=== PATIENT | male | born 1985 | race Caucasian/White ===

== ENCOUNTER 2018-08-11 21:03 | Inpatient (IN) | payer SELFPAY ==
[~2018-08-11] VITALS: Ht 160 cm; Wt 45.8 kg
--- NOTE | 2018-08-11 21:11 | NUR ---
JARETH LOBO admitted to room 401-1, with an admitting diagnosis of POSSIBLE TB INFECTION/PNU, on 08/11/18 from DIRECT ADMIT via WC, accompanied by FAMILY.JARETH LOBO introduced to surroundings, call light, bed controls, phone, TV, temperature control, lights, meal times, smoking policy, visitor policy, side rail policy, bathrooms and showers. Patient Rights given to patient in the handbook.JARETH LOBO verbalizes understanding that [facility] is not responsible for the loss or damage to any personal effects or valuables that are kept in the patients posession during their hospitalization.
[2018-08-11] MEDS ORDERED: cefTRIAXone FOR IV USE 1,000 MG in WATER (STERILE) FOR INJECTION 10 ML IV SCH (21:15)
[2018-08-11] MEDS ORDERED: RT-ALBUTEROL/IPRATROPIUM 3 ML (DUONEB) VIAL INH SCH (21:15)
--- NOTE | 2018-08-11 21:28 | NUR ---
UTILIZED LANGUAGE LINE PATIENT/FAMILY DOES NOT SPEAK HUNGARIAN.
[2018-08-11 21:46] VITALS: BP 97/63
[2018-08-11 22:14] VITALS: BP 97/63
[2018-08-11] MEDS ORDERED: RT-HYPERTONIC SALINE 3% 4 ML NEB ONE (22:41)
[2018-08-11] MEDS ORDERED: RT-HYPERTONIC SALINE 3% 4 ML NEB INH ONE (23:00)
[2018-08-11] MEDS: NS IV 1000 ML 1,000 ML IV SCH (23:30)
[2018-08-12] VITALS (12 sets, daily range): BP systolic 91–110; BP diastolic 63–83
[2018-08-12] MEDS ORDERED: RT-ALBUTEROL SULF 2.5 MG/3 ML PRE-MIX VIAL INH PRN (01:30)
[2018-08-12 02:02] LABS: BASOPHILS % (AUTO) 0 % (0-10); EOSINOPHILS % (AUTO) 0 % (0-10); HEMATOCRIT 31 % (40-54); HEMOGLOBIN 9.9 G/DL (13.3-17.7); LYMPHOCYTES # (AUTO) 1.6 X 10^3 (1.0-4.0); LYMPHOCYTES % (AUTO) 10 % (12-44); MEAN CORPUSCULAR HEMOGLOBIN 24 PG (25-34); MEAN CORPUSCULAR HGB CONC 32 G/DL (32-36); MEAN CORPUSCULAR VOLUME 76 FL (80-99); MEAN PLATELET VOLUME 8.4 FL (7.4-10.4); MONOCYTES # (AUTO) 1.3 X 10^3 (0.0-1.0); MONOCYTES % (AUTO) 8 % (0-12); NEUTROPHILS # (AUTO) 12.4 X 10^3 (1.8-7.8); NEUTROPHILS % (AUTO) 81 % (42-75); PLATELET COUNT 801 10^3/uL (130-400); RED CELL DISTRIBUTION WIDTH 14.9 % (10.0-14.5); WHITE BLOOD COUNT 15.3 10^3/uL (4.3-11.0)
[2018-08-12 02:23] LABS: ALANINE AMINOTRANSFERASE 39 U/L (0-55); ALBUMIN 2.9 GM/DL (3.2-4.5); ALKALINE PHOSPHATASE 173 U/L (40-136); BILIRUBIN,TOTAL 0.2 MG/DL (0.1-1.0); BUN/CREATININE RATIO 20; CALCIUM 9.1 MG/DL (8.5-10.1); CARBON DIOXIDE 21 MMOL/L (21-32); CHLORIDE 95 MMOL/L (98-107); CREATININE SERUM 0.75 MG/DL (0.60-1.30); GFR ESTIMATED > 60; GLUCOSE 295 MG/DL (70-105); POTASSIUM 3.9 MMOL/L (3.6-5.0); SODIUM 131 MMOL/L (135-145); TOTAL PROTEIN 6.9 GM/DL (6.4-8.2)
[2018-08-12 03:44] LABS: HYPOCHROMASIA SLIGHT; LYMPHOCYTES % (MANUAL) 9 %; MICROCYTOSIS SLIGHT; MONOCYTES % (MANUAL) 9 %; NEUTROPHILS % (MANUAL) 82 %
[2018-08-12 05:54] LABS: BASOPHILS % (AUTO) 0 % (0-10); EOSINOPHILS # (AUTO) 0.1 10^3/uL (0.0-0.3); EOSINOPHILS % (AUTO) 0 % (0-10); HEMATOCRIT 31 % (40-54); HEMOGLOBIN 9.7 G/DL (13.3-17.7); LYMPHOCYTES # (AUTO) 1.4 X 10^3 (1.0-4.0); LYMPHOCYTES % (AUTO) 12 % (12-44); MEAN CORPUSCULAR HEMOGLOBIN 24 PG (25-34); MEAN CORPUSCULAR HGB CONC 32 G/DL (32-36); MEAN CORPUSCULAR VOLUME 76 FL (80-99); MEAN PLATELET VOLUME 8.1 FL (7.4-10.4); MONOCYTES # (AUTO) 1.2 X 10^3 (0.0-1.0); MONOCYTES % (AUTO) 10 % (0-12); NEUTROPHILS # (AUTO) 9.3 X 10^3 (1.8-7.8); NEUTROPHILS % (AUTO) 78 % (42-75); PLATELET COUNT 696 10^3/uL (130-400); RED CELL DISTRIBUTION WIDTH 14.9 % (10.0-14.5); WHITE BLOOD COUNT 11.9 10^3/uL (4.3-11.0)
[2018-08-12 06:29] LABS: ALANINE AMINOTRANSFERASE 35 U/L (0-55); ALBUMIN 2.8 GM/DL (3.2-4.5); ALKALINE PHOSPHATASE 160 U/L (40-136); BILIRUBIN,TOTAL 0.3 MG/DL (0.1-1.0); BUN/CREATININE RATIO 19; CALCIUM 8.9 MG/DL (8.5-10.1); CARBON DIOXIDE 20 MMOL/L (21-32); CHLORIDE 99 MMOL/L (98-107); CREATININE SERUM 0.68 MG/DL (0.60-1.30); GFR ESTIMATED > 60; GLUCOSE 219 MG/DL (70-105); SODIUM 131 MMOL/L (135-145); TOTAL PROTEIN 6.5 GM/DL (6.4-8.2)
[2018-08-12] MEDS: NS IV 1000 ML 1,000 ML IV SCH ×3 (07:54→18:44)
--- NOTE | 2018-08-12 08:12 | Diagnostic Imaging Report ---
INDICATION: Shortness of breath and cough. FINDINGS: There are diffuse alveolar nodular infiltrates throughout both lungs. This is most dense in the left lung. The pattern is suspicious for diffuse pulmonary metastases. IMPRESSION: Grossly normal lungs could be metastatic process with superimposed pneumonia. Further evaluation with CT recommended. Dictated by: Dictated on workstation # [id number]
[2018-08-12] MEDS: RT-ALBUTEROL SULF 2.5 MG/3 ML PRE-MIX VIAL INH SCH ×2 (08:38→20:10)
--- NOTE | 2018-08-12 08:45 | Diagnostic Imaging Report ---
PROCEDURE: CT chest without contrast. TECHNIQUE: Multiple contiguous axial images were obtained through the chest without the use of intravenous contrast. Auto Exposure Controls were utilized during the CT exam to meet ALARA standards for radiation dose reduction. INDICATION: Shortness of breath There are no prior CT examinations available for comparison. The plain film examination of the chest performed on 08/11/2018 noted diffusely abnormal densities throughout both lungs. The possibility of metastatic disease was raised. On this study, there are numerous parenchymal lung masses some with cavitation. There are alveolar/interstitial infiltrates as well, particularly on the left. This appearance could well be secondary to neoplastic disease. An extensive inflammatory/infectious process such as a fungal infection could also present in this manner. There is no pleural fluid identified. The heart size is within normal limits. The aorta is not abnormally dilated. There do seem to be enlarged lymph nodes in the aorticopulmonary window and the left hilum. The evaluation of adenopathy, however, is limited due to the absence of intravenous contrast. The thyroid gland is unremarkable. The sections through the upper abdomen failed to show any sign of an acute abnormality. The bone windows are unremarkable for a fracture or for a destructive lesion. IMPRESSION: 1. There are extensive parenchymal nodules and alveolar/interstitial infiltrates bilaterally. Many of these nodules are cavitated. While these findings could be secondary to an inflammatory/infectious process, neoplastic disease should be the primary concern. 2. If previous exams are available, they would be helpful for comparison. Dictated by: Dictated on workstation # [id number]
[2018-08-12] MEDS ORDERED: AZITHROMYCIN INJECTION 500 MG in NS (IVPB) 250 ML IV SCH (09:00)
[2018-08-12] MEDS ORDERED: TUBERCULIN ID NR (09:21)
--- NOTE | 2018-08-12 09:47 | NUR ---
Dr Soriano ask for orders for a TB skin test. Order placed. Patient resting bed. TB skin test administered. Patient unable to very much speak Irish verbalized understand of education. I set patient up to eat breakfast after the TB skin test. No other needs at this time.
[2018-08-12] MEDS ORDERED: PIPERACILLIN/TAZO 4.5 GM/NS 100 ML IV NR ×2 (10:43)
[2018-08-12] MEDS ORDERED: VANCOMYCIN INJECTION 1,000 MG in NS (IVPB) 250 ML IV NR (10:46)
--- NOTE | 2018-08-12 11:35 | Pulmonary Consultation ---
History of Present Illness History of Present Illness Date of Consultation 08/12/18 11:30 Time Seen by Provider: 08:55 Date of Admission History of Present Illness 33yo with recent dx of DM from [facility] presented to [facility] clinic with persistent SOB, coughing green sputum, and excessive wt loss of over 100lbs. Denies any fever or chills. Denies any known contacts with TB. No hemoptysis . I am consulted for pulmonary management. Allergies and Home Medications Allergies Coded Allergies: No Known Drug Allergies (Unverified , 08/11/18) Home Medications No Active Prescriptions or Reported Meds Past Rzpyqqk-Lijemq-Phbjox Hx Patient Social History Alcohol Use: Denies Use Recreational Drug Use: No Recent Foreign Travel: Yes ([place]) Contact w/Someone Who Travel: Yes ([place]) Recent Infectious Disease Expo: Yes Recent Hopitalizations: No Seasonal Allergies Seasonal Allergies: No Past Medical History Surgeries: No Respiratory: No Cardiac: No Neurological: No Genitourinary: No Gastrointestinal: No Musculoskeletal: No Endocrine: Yes HEENT: No Cancer: No Psychosocial: No Integumentary: No Blood Disorders: No Review of Systems Time Seen by Provider: 09:02 Constitutional: Sweats, Weakness, Malaise; No: Fever, Chills, Other Eyes: No: Pain, Vision change, Conjunctivae inflammation, Eyelid inflammation, Other, Redness ENT: No: Ear pain, Ear discharge, Nose pain, Nose discharge, Nose congestion, Mouth pain, Mouth swelling, Throat pain, Throat swelling, Other Respiratory: Cough, Dry, Shortness of breath, SOB with excertion; No: Wheezing, Hemoptysis Sepsis Event Evaluation Height, Weight, BMI Height: 5'3.00" Weight: 96lbs. 6.0oz. 43.224615ma; 17.1 BMI Method: Exam Exam Vital Signs Date Time Temp Pulse Resp B/P (MAP) Pulse Ox O2 Delivery O2 Flow Rate FiO2 08/12/18 11:03 97.3 104 20 107/72 (84) 97 Room Air 08/12/18 08:39 97 Room Air 08/12/18 08:07 96 Room Air 08/12/18 04:00 98.9 96 20 101/65 (77) 96 Room Air 08/12/18 01:07 108 98 08/12/18 00:00 99.7 111 22 91/63 (72) 96 Room Air 08/11/18 23:45 95 Room Air 08/11/18 23:38 95 Room Air 08/11/18 22:45 Room Air 08/11/18 22:14 108 22 97/63 98 Room Air 08/11/18 21:46 108 22 97/63 (74) 98 Room Air I & O 08/12/18 07:00 Intake Total 250 ml Balance 250 ml Height & Weight Height: 5'3.00" Weight: 96lbs. 6.0oz. 43.401097as; 17.1 BMI Method: General Appearance: No Apparent Distress, WD/WN, Anxious HEENT: PERRL/EOMI, Normal ENT Inspection, Pharynx Normal Neck: Full Range of Motion, Normal Inspection, Non Tender, Supple Respiratory: Chest Non Tender, No Accessory Muscle Use, No Respiratory Distress, Decreased Breath Sounds Cardiovascular: Regular Rate, Rhythm, No Edema, No Gallop, No JVD Capillary Refill: Less Than 3 Seconds Gastrointestinal: normal bowel sounds, non tender, soft, no organomegaly, no pulsatile mass Extremity: Normal Capillary Refill, Normal Inspection Neurologic/Psychiatric: Alert, Oriented x3 Skin: Normal Color, Warm/Dry Lymphatic: No Adenopathy Results Lab Laboratory Tests 08/12/18 01:45 08/12/18 05:45 Assessment/Plan Assessment/Plan Severe bilateral cavitary pneumonia r/o TB -Continue beulah parnell -agarwal cultures -Check HIV -Check serum fungal panel -TB quantaferon -Will do bronchoscopy in AM severe sepsis -Start severe sepsis protocol -30ml/kg of IVF -Transfer to ICU for close monitoring DM -Monitor YUSUF BECERRA DO Aug 12, 2018 11:35
[2018-08-12] MEDS ORDERED: NS IV ONE (11:45)
[2018-08-12 12:18] LABS: ABG BASE EXCESS -1.2 MMOL/L (-2.5-2.5); ABG OXYGEN SATURATION 95 % (94-100); ABG PCO2 36 MMHG (35-45); ABG PH 7.41 (7.37-7.43); ABG PO2 69 MMHG (79-93)
[2018-08-12 12:20] LABS: ALLENS TEST YES-POS; INSPIRED O2 RA; PATIENT TEMP 97.3; VENTILATOR NO
[2018-08-12 12:20] LABS: ABSOLUTE RETIC # 31 10e9/L (24-90); BASOPHILS % (AUTO) 0 % (0-10); EOSINOPHILS % (AUTO) 0 % (0-10); HEMATOCRIT 31 % (40-54); HEMOGLOBIN 9.7 G/DL (13.3-17.7); LYMPHOCYTES # (AUTO) 1.5 X 10^3 (1.0-4.0); LYMPHOCYTES % (AUTO) 13 % (12-44); MEAN CORPUSCULAR HEMOGLOBIN 24 PG (25-34); MEAN CORPUSCULAR HGB CONC 31 G/DL (32-36); MEAN CORPUSCULAR VOLUME 76 FL (80-99); MEAN PLATELET VOLUME 8.8 FL (7.4-10.4); MONOCYTES # (AUTO) 1.2 X 10^3 (0.0-1.0); MONOCYTES % (AUTO) 10 % (0-12); NEUTROPHILS # (AUTO) 8.9 X 10^3 (1.8-7.8); NEUTROPHILS % (AUTO) 77 % (42-75); PLATELET COUNT 723 10^3/uL (130-400); RED CELL DISTRIBUTION WIDTH 14.9 % (10.0-14.5); RETICULOCYTE % 0.76 % (0.50-2.40); WHITE BLOOD COUNT 11.6 10^3/uL (4.3-11.0)
[2018-08-12 12:48] LABS: BAND NEUTROPHILS 2 %; BASOPHILS % (MANUAL) 0 %; EOSINOPHILS % (MANUAL) 0 %; LYMPHOCYTES % (MANUAL) 13 %; MONOCYTES % (MANUAL) 9 %; NEUTROPHILS % (MANUAL) 76 %
[2018-08-12 12:49] LABS: ANISOCYTOSIS SLIGHT; HYPOCHROMASIA SLIGHT; MICROCYTOSIS SLIGHT
--- NOTE | 2018-08-12 13:37 | NUR ---
USED THE [employer]REL ENDSHAKE ADJUSTER LINE TO ASK THE PATIENT IF HE WAS TAKING ANY MEDICATIONS PRIOR TO ADMISSION. HE STATES HE WAS NOT. WHEN ASKED WHAT PHARMACY HE WOULD LIKE TO USE HE REPLIED THE ONE CLOSEST TO ME. 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
--- NOTE | 2018-08-12 15:27 | NUR ---
Report to SVITLANA Cruz at this time. this RN escorted Patient to ICU1 per wheelchair with patient's belongings. SVITLANA Cruz to assume care of patient at this time.
[2018-08-12 17:17] LABS: AMPHETAMINE SCREEN, URINE NEGATIVE (NEGATIVE); BARBITURATE SCREEN URINE NEGATIVE (NEGATIVE); BENZODIAZEPINES SCREEN URINE NEGATIVE (NEGATIVE); CANNABINOID SCREEN, URINE NEGATIVE (NEGATIVE); COCAINE SCREEN URINE NEGATIVE (NEGATIVE); METHADONE STAT NEGATIVE (NEGATIVE); METHAMPHETAMINE SCREEN URINE S NEGATIVE (NEGATIVE); OPIATE SCREEN URINE NEGATIVE (NEGATIVE); OXYCODONE STAT NEGATIVE (NEGATIVE); PROPOXYPHENE STAT NEGATIVE (NEGATIVE); TRICYCLIC ANTIDEPRESSANTS SCRE NEGATIVE (NEGATIVE)
--- NOTE | 2018-08-12 17:23 | History & Physicial (CHS) ---
HPI History of Present Illness: 33 yo M from [facility] that presented to [facility] walk in clinic yesterday with weight loss and cough. States that he arrived here a couple weeks ago. States that prior to leaving [facility] he weighed 210 and now is under 100#. States that he was diagnosed with DM and was taking pills and he has been without any medications for over 6 months. Denies any fever or chills. Denies any known contacts with TB. Denies any pain. Denies any blood in sputum, urine or stool History got with director radiation oncology phone. Source: patient Exam Limitations: language barrier Date seen by provider: Aug 12, 2018 Time Seen by Provider: 11:30 Attending Physician Nakul Soriano MD [facility] Consult Date of Admission Aug 11, 2018 at 21:03 Home Medications Home Medications Reviewed patient Home Medication Reconciliation performed by pharmacy medication reconciliations splicing technician and/or nursing. Patients Allergies have been reviewed. Allergies Coded Allergies: No Known Drug Allergies (Unverified , 08/11/18) LPP-Sghdoz-Cijftp Hx Patient Social History Alcohol Use: Denies Use Recreational Drug Use: No Recent Foreign Travel: Yes ([place]) Contact w/other who traveled: Yes ([place]) Recent Hopitalizations: No Recent Infectious Disease Expo: Yes Physical Abuse Screen: No Sexual Abuse: No Past Medical History NIDDM Review of Systems ([facility]) Constitutional: No chills, No fever; weakness EENTM: no symptoms reported; No nose congestion, No throat pain, No throat swelling Respiratory: cough; No dyspnea on exertion, No hemoptysis, No short of breath Cardiovascular: no symptoms reported; No chest pain, No edema, No palpitations Gastrointestinal: no symptoms reported; No abdominal pain, No constipation, No diarrhea, No loss of appetite, No nausea, No vomiting Genitourinary: no symptoms reported; No dysuria, No frequency, No hematuria Musculoskeletal: no symptoms reported; No back pain, No joint pain, No muscle pain Skin: no symptoms reported; No lesions, No rash Psychiatric/Neurological: No Symptoms Reported Reviewed Test Results Reviewed Test Results Lab Laboratory Tests Test 08/12/18 01:45 08/12/18 05:45 08/12/18 12:07 08/12/18 14:38 Range/Units White Blood Count 15.3 H 11.6 H 4.3-11.0 10^3/uL Red Blood Count 4.13 L 4.09 L 4.35-5.85 10^6/uL Hemoglobin 9.9 L 9.7 L 13.3-17.7 G/DL Hematocrit 31 L 31 L 40-54 % Mean Corpuscular Volume 76 L 76 L 80-99 FL Mean Corpuscular Hemoglobin 24 L 24 L 25-34 PG Mean Corpuscular Hemoglobin Concent 32 31 L 32-36 G/DL Red Cell Distribution Width 14.9 H 14.9 H 10.0-14.5 % Platelet Count 801 H 723 H 130-400 10^3/uL Mean Platelet Volume 8.4 8.8 7.4-10.4 FL Neutrophils (%) (Auto) 81 H 77 H 42-75 % Lymphocytes (%) (Auto) 10 L 13 12-44 % Monocytes (%) (Auto) 8 10 0-12 % Eosinophils (%) (Auto) 0 0 0-10 % Basophils (%) (Auto) 0 0 0-10 % Neutrophils # (Auto) 12.4 H 8.9 H 1.8-7.8 X 10^3 Lymphocytes # (Auto) 1.6 1.5 1.0-4.0 X 10^3 Monocytes # (Auto) 1.3 H 1.2 H 0.0-1.0 X 10^3 Eosinophils # (Auto) 0.0 0.0 0.0-0.3 10^3/uL Basophils # (Auto) 0.0 0.0 0.0-0.1 10^3/uL Neutrophils % (Manual) 82 76 % Lymphocytes % (Manual) 9 13 % Monocytes % (Manual) 9 9 % Hypochromasia SLIGHT SLIGHT Microcytosis SLIGHT SLIGHT Sodium Level 131 L 131 L 135-145 MMOL/L Potassium Level 3.9 4.0 3.6-5.0 MMOL/L Chloride Level 95 L 99 98-107 MMOL/L Carbon Dioxide Level 21 20 L 21-32 MMOL/L Anion Gap 15 H 12 5-14 MMOL/L Blood Urea Nitrogen 15 13 7-18 MG/DL Creatinine 0.75 0.68 0.60-1.30 MG/DL Estimat Glomerular Filtration Rate > 60 > 60 BUN/Creatinine Ratio 20 19 Glucose Level 295 H 219 H 70-105 MG/DL Lactic Acid Level 3.00 *H 1.75 0.50-2.00 MMOL/L Calcium Level 9.1 8.9 8.5-10.1 MG/DL Corrected Calcium 10.0 9.9 8.5-10.1 MG/DL Total Bilirubin 0.2 0.3 0.1-1.0 MG/DL Aspartate Amino Transf (AST/SGOT) 23 22 5-34 U/L Alanine Aminotransferase (ALT/SGPT) 39 35 0-55 U/L Alkaline Phosphatase 173 H 160 H 40-136 U/L Total Protein 6.9 6.5 6.4-8.2 GM/DL Albumin 2.9 L 2.8 L 3.2-4.5 GM/DL Eosinophils % (Manual) 0 % Basophils % (Manual) 0 % Band Neutrophils 2 % Anisocytosis SLIGHT Absolute Reticulocyte Count 31 24-90 10e9/L Percent Reticulocyte Count 0.76 0.50-2.40 % Blood Gas Puncture Site RR Blood Gas Patient Temperature 97.3 Arterial Blood pH 7.41 7.37-7.43 Arterial Blood Partial Pressure CO2 36 35-45 MMHG Arterial Blood Partial Pressure O2 69 L 79-93 MMHG Arterial Blood HCO3 23 23-27 MMOL/L Arterial Blood Total CO2 24.0 21.0-31.0 MMOL/L Arterial Blood Oxygen Saturation 95 94-100 % Arterial Blood Base Excess -1.2 -2.5-2.5 MMOL/L David Test YES-POS Blood Gas Ventilator Setting NO Blood Gas Inspired Oxygen RA Test 08/12/18 17:00 Range/Units Urine Opiates Screen NEGATIVE NEGATIVE Urine Oxycodone Screen NEGATIVE NEGATIVE Urine Methadone Screen NEGATIVE NEGATIVE Urine Propoxyphene Screen NEGATIVE NEGATIVE Urine Barbiturates Screen NEGATIVE NEGATIVE Ur Tricyclic Antidepressants Screen NEGATIVE NEGATIVE Urine Phencyclidine Screen NEGATIVE NEGATIVE Urine Amphetamines Screen NEGATIVE NEGATIVE Urine Methamphetamines Screen NEGATIVE NEGATIVE Urine Benzodiazepines Screen NEGATIVE NEGATIVE Urine Cocaine Screen NEGATIVE NEGATIVE Urine Cannabinoids Screen NEGATIVE NEGATIVE Physical Exam-(CHC) Physical Exam Vital Signs VS - Last 72 Hours, by Label 08/11/18 08/11/18 08/11/18 08/11/18 21:46 22:14 22:45 23:38 Pulse 108 108 Resp 22 22 B/P (MAP) 97/63 (74) 97/63 Pulse Ox 98 98 95 O2 Delivery Room Air Room Air Room Air Room Air 08/11/18 08/12/18 08/12/1812/19 23:45 00:00 01:07 04:00 Temp 99.7 98.9 Pulse 111 108 96 Resp 22 20 B/P (MAP) 91/63 (72) 101/65 (77) Pulse Ox 95 96 98 96 O2 Delivery Room Air Room Air Room Air 08/12/18 08/12/18 08/12/18 08/12/18 08:07 08:39 11:03 15:00 Temp 97.3 97.8 Pulse 104 75 Resp 20 18 B/P (MAP) 107/72 (84) 102/68 (79) Pulse Ox 96 97 97 98 O2 Delivery Room Air Room Air Room Air Simple Mask 08/12/18 08/12/18 08/12/18 16:00 16:00 16:30 Temp 98.0 Pulse 76 65 Resp 18 19 B/P (MAP) 109/83 (92) 104/69 (81) Pulse Ox 97 96 O2 Delivery Room Air Room Air Room Air Capillary Refill : General Appearance: WD/WN, no apparent distress, thin HEENT: PERRL/EOMI, pharynx normal Neck: non-tender, full range of motion, supple Respiratory: chest non-tender, normal breath sounds, no respiratory distress, no accessory muscle use Cardiovascular: normal peripheral pulses, regular rate, rhythm, no murmur Gastrointestinal: normal bowel sounds, non tender, soft, no organomegaly Back: no CVA tenderness, no vertebral tenderness Extremities: normal range of motion, non-tender, no pedal edema, no calf tenderness, normal capillary refill Neurologic/Psychiatric: cant gang sawyer II-XII nml as tested, no motor/sensory deficits, alert, normal mood/affect, oriented x 3 Skin: normal color, warm/dry Lymphatic: no adenopathy Assessment/Plan Assessment/Plan Admission Status: Inpatient Order (span 2 midnights) Reason for Inpatient Admission: Needs ICU care and close monitoring (1) Cough Status: Acute Assessment & Plan: - CXR and CT concerning for TB, TB precautions, TB skin test done, Quanterferon Gold ordered, Dr Gomez consulted for bronch (2) Weight loss, unintentional Status: Acute (3) Microcytic anemia Status: Acute Assessment & Plan: - Peripheral smear pending, iron panel pending (4) Sepsis Status: Acute Assessment & Plan: - LA resolved, IVFs 30 ml/kg, Vanc/Zosyn/Azithromycin start ed, blood cultures pending Qualifiers: Qualified Codes: A41.9 - Sepsis, unspecified organism (5) Pneumonia Status: Acute Qualifiers: Qualified Codes: J18.9 - Pneumonia, unspecified organism (6) Non-insulin dependent type 2 diabetes mellitus Status: Chronic Assessment & Plan: - A1c pending Clinical Quality Measures DVT/VTE Risk/Contraindication: RFS Level Per Nursing on Admit: 0=No Risk/No VTE PPX NAKUL SORIANO MD Aug 12, 2018 17:23
[2018-08-12] MEDS: PIPERACILLIN/TAZOBACTAM (BULK) 4.5 GM in NS (IVPB) 100 ML IV SCH (18:38)
[2018-08-12 19:04] LABS: BILIRUBIN,URINE NEGATIVE (NEGATIVE); CLARITY,URINE CLEAR; COLOR,URINE YELLOW; GLUCOSE, URINE (UA) NEGATIVE (NEGATIVE); KETONES,URINE NEGATIVE (NEGATIVE); LEUKOCYTE ESTERASE ,URINE NEGATIVE (NEGATIVE); NITRITE,URINE NEGATIVE (NEGATIVE); PH,URINE 5 (5-9); PROTEIN,URINE NEGATIVE (NEGATIVE); UROBILINOGEN,URINE NORMAL (NORMAL)
[2018-08-12 19:13] LABS: BACTERIA,URINE TRACE /HPF
[2018-08-12] MEDS ORDERED: VANCOMYCIN 750 MG/NS 250 ML IVPB IV SCH ×2 (22:00)
[2018-08-13] VITALS (24 sets, daily range): BP systolic 74–181; BP diastolic 46–130
[2018-08-13] MEDS: PIPERACILLIN/TAZOBACTAM (BULK) 4.5 GM in NS (IVPB) 100 ML IV SCH ×3 (01:03→16:26)
[2018-08-13] MEDS: NS IV 1000 ML 1,000 ML IV SCH ×4 (01:04→23:52)
[2018-08-13 05:07] LABS: BASOPHILS % (AUTO) 0 % (0-10); EOSINOPHILS # (AUTO) 0.1 10^3/uL (0.0-0.3); EOSINOPHILS % (AUTO) 1 % (0-10); HEMATOCRIT 33 % (40-54); HEMOGLOBIN 10.3 G/DL (13.3-17.7); LYMPHOCYTES # (AUTO) 1.3 X 10^3 (1.0-4.0); LYMPHOCYTES % (AUTO) 12 % (12-44); MEAN CORPUSCULAR HEMOGLOBIN 24 PG (25-34); MEAN CORPUSCULAR HGB CONC 32 G/DL (32-36); MEAN CORPUSCULAR VOLUME 76 FL (80-99); MEAN PLATELET VOLUME 8.1 FL (7.4-10.4); MONOCYTES # (AUTO) 0.9 X 10^3 (0.0-1.0); MONOCYTES % (AUTO) 8 % (0-12); NEUTROPHILS # (AUTO) 8.9 X 10^3 (1.8-7.8); NEUTROPHILS % (AUTO) 80 % (42-75); PLATELET COUNT 737 10^3/uL (130-400); RED CELL DISTRIBUTION WIDTH 14.7 % (10.0-14.5); WHITE BLOOD COUNT 11.1 10^3/uL (4.3-11.0)
[2018-08-13 05:21] LABS: ALANINE AMINOTRANSFERASE 29 U/L (0-55); ALBUMIN 2.7 GM/DL (3.2-4.5); ALKALINE PHOSPHATASE 139 U/L (40-136); BILIRUBIN,TOTAL 0.3 MG/DL (0.1-1.0); BUN/CREATININE RATIO 9; CALCIUM 8.5 MG/DL (8.5-10.1); CARBON DIOXIDE 22 MMOL/L (21-32); CHLORIDE 101 MMOL/L (98-107); CREATININE SERUM 0.66 MG/DL (0.60-1.30); GFR ESTIMATED > 60; GLUCOSE 124 MG/DL (70-105); MAGNESIUM 1.4 MG/DL (1.8-2.4); PHOSPHORUS 3.4 MG/DL (2.3-4.7); POTASSIUM 4.3 MMOL/L (3.6-5.0); SODIUM 132 MMOL/L (135-145); TOTAL PROTEIN 6.2 GM/DL (6.4-8.2)
[2018-08-13] MEDS: POTASSIUM CL 10MEQ/50ML IVPB 50 ML IV SCH (05:23)
[2018-08-13] MEDS: MAGNESIUM 1 GM/100 ML IVPB 100 ML IV SCH ×3 (05:24→10:53)
[2018-08-13] MEDS: KCL 20 MEQ TAB (K-DUR) PO SCH (05:24)
[2018-08-13] MEDS ORDERED: MIDAZOLAM 5 MG/5 ML (VERSED) VIAL ONE (06:38)
[2018-08-13] MEDS ORDERED: fentaNYL INJECTION 100 MCG/2 ML AMP ONE (06:38)
--- NOTE | 2018-08-13 06:51 | Diagnostic Imaging Report ---
INDICATION: Pulmonary infiltrate. Portable chest at 3:31 AM Comparison from 08/11/2018. FINDINGS: There are coarse alveolar nodular infiltrates in both lungs with more confluence seen on the left than right. There is no obvious effusion. IMPRESSION: Severe diffuse pulmonary infiltrates, worse on the left than on the right. This has not appreciably changed from the previous study. Dictated by: Dictated on workstation # [id number]
--- NOTE | 2018-08-13 06:53 | Pulmonary Progress Note ---
Subjective Time Seen by a Provider: 11:28 Subjective/Events-last exam Family at bedside. CXR appears worse. Consent obtained for bronchoscopy. Sepsis Event Evaluation Height, Weight, BMI Height: 5'3.00" Weight: 96lbs. 6.0oz. 43.053035nb; 17.1 BMI Method: Focused Exam Lactate Level 08/12/18 01:45: Lactic Acid Level 3.00*H 08/12/18 05:45: Lactic Acid Level 1.75 Exam Exam Vital Signs Date Time Temp Pulse Resp B/P (MAP) Pulse Ox O2 Delivery O2 Flow Rate FiO2 08/13/18 06:00 91 27 95/58 (70) 92 Room Air 08/13/18 05:00 101 22 95/60 (72) 94 Room Air 08/13/18 04:00 101 29 93/63 (73) 93 Room Air 08/13/18 03:00 90 22 102/70 (81) 94 Room Air 08/13/18 02:00 85 23 96/66 (76) 94 Room Air 08/13/18 01:06 94 08/13/18 01:00 91 101/69 (80) 95 Room Air 08/13/18 00:00 94 Room Air 08/13/18 00:00 94 25 106/74 (85) 93 Room Air 08/12/18 23:00 96 34 101/66 (78) 93 Room Air 08/12/18 22:00 125 17 110/70 (83) 93 Room Air 08/12/18 21:40 93 Room Air 08/12/18 21:21 80 25 102/73 (83) Room Air 08/12/18 20:11 99.4 08/12/18 20:10 Room Air 08/12/18 20:00 95 Room Air 08/12/18 19:08 79 19 108/78 (88) Room Air 08/12/18 19:00 74 08/12/18 18:00 68 40 100/68 (79) Room Air 08/12/18 17:00 87 26 109/83 (92) Room Air 08/12/18 16:30 96 Room Air 08/12/18 16:00 65 19 104/69 (81) Room Air 08/12/18 16:00 98.0 76 18 109/83 (92) 97 Room Air 08/12/18 15:00 97.8 75 18 102/68 (79) 98 Simple Mask 08/12/18 11:03 97.3 104 20 107/72 (84) 97 Room Air 08/12/18 08:39 97 Room Air 08/12/18 08:07 96 Room Air I & O 08/13/18 07:00 Intake Total 1977.5 ml Balance 1977.5 ml Height & Weight Height: 5'3.00" Weight: 96lbs. 6.0oz. 43.086132jg; 17.1 BMI Method: General Appearance: Anxious, Mild Distress, Thin HEENT: PERRL/EOMI, Normal ENT Inspection, Pharynx Normal Neck: Full Range of Motion, Non Tender, Supple Respiratory: No Accessory Muscle Use, No Respiratory Distress, Decreased Breath Sounds Cardiovascular: Regular Rate, Rhythm, No Edema, No Gallop Capillary Refill: Less Than 3 Seconds Gastrointestinal: normal bowel sounds, non tender, soft, no organomegaly Extremity: Normal Capillary Refill, No Pedal Edema Neurologic/Psychiatric: Alert, Oriented x3 Skin: Normal Color, Warm/Dry Lymphatic: No Adenopathy Results Lab Laboratory Tests 08/12/18 01:45 08/12/18 05:45 08/13/18 04:50 Assessment/Plan Assessment/Plan Severe bilateral cavitary pneumonia r/o TB -Continue beulah parnell -agarwal cultures -Check HIV -Check serum fungal panel -TB quantaferon -Will do bronchoscopy today severe sepsis -Start severe sepsis protocol -CXR appears worse.-- change IVF to 75cc/hr -Transfer to ICU for close monitoring Hypomag -replace DM -Monitor YUSUF BECERRA DO Aug 13, 2018 06:53
[2018-08-13] MEDS ORDERED: MIDAZOLAM 5 MG/5 ML (VERSED) VIAL IVP ONE (07:05)
[2018-08-13] MEDS ORDERED: fentaNYL INJECTION 100 MCG/2 ML AMP IV ONE (07:45)
[2018-08-13] MEDS ORDERED: TROUGH ORDER-PHARMACY XX NR (09:00)
--- NOTE | 2018-08-13 10:02 | NUR ---
CM/SS, respond to consult. Continuing intermittent review of patient progress, moved from acute to ICU.
--- NOTE | 2018-08-13 10:34 | NUR ---
1015 DUE TO CHANGES IN STAFFING CARE OF PT AND REPORT GIVEN TO Randell SANTILLAN RN.
--- NOTE | 2018-08-13 10:47 | NUR ---
ptd vancomycin labs: scr 0.66 vancomycin level 5.1 plan: increase vancomycin to 1,500mg iv q 12 hours, next dose now, will recheck a trough level on 08/14 (prior to 3rd dose of new dosing schedule).
[2018-08-13] MEDS ORDERED: LIDOCAINE PF 1% 2 ML VIAL IJ ONE (10:51)
[2018-08-13] MEDS ORDERED: LIDOCAINE JELLY 2% 6 ML SYRINGE TOP ONE (10:51)
--- NOTE | 2018-08-13 11:32 | Pulmonary Procedures ---
Pulmonary Procedures Date of Procedure Date of Service: Aug 13, 2018 Bronch Bronchoscopy with bilateral bronchial washes and, RML BAL. Preop DX Cavitary PNA Postop DX: same with copious amounts of thick yellow sputum/mucous plugs. Complications: none After informed consent obtained and formal time out pt was sedated using Fentanyl and Versed. Bronchoscope was advanced through the nare and vocal cords. 1% lidocaine was used to anesthetize vocal cords, epiglottis, kd, and left/right main stem bronchus. An anatomical tour was undertaken down to the segmental bronchi bilaterally. No endobronchial lesions noted. Bilateral bronchial washes and, RML BAL were obtained. Pt tolerated procedure well. No complications noted. Stat CXR is pending. YUSUF BECERRA DO Aug 13, 2018 11:32
[2018-08-13] MEDS: inSUlin ASPART (NovoLOG) 1 UNIT/0.01 ML (CHARGE PER UNIT) SC SCH ×2 (12:23→18:45)
[2018-08-13] MEDS: VANCOMYCIN 1500 MG/NS 500 ML IVPB IV SCH ×4 (12:23→22:00)
--- NOTE | 2018-08-13 15:49 | NUR ---
1420 DUE TO CHANGES IN STAFFING CARE OF PT BACK TO THIS RN, REPORT RECEIVED FROM Randell SANTILLAN RN.
--- NOTE | 2018-08-13 19:22 | Progress Note (SOAP) ---
Subjective Subjective/Events-last exam Family at bedside. Patient doing well after bronch. Denies any shortness of breath or chest pain. Review of Systems Date Seen by Provider: Aug 13, 2018 Time Seen by Provider: 07:20 Pulmonary: Cough Cardiovascular: No: Chest Pain, Palpitations Gastrointestinal: No: Nausea, Vomiting, Abdominal Pain Focused Exam Lactate Level 08/12/18 01:45: Lactic Acid Level 3.00*H 08/12/18 05:45: Lactic Acid Level 1.75 Objective Exam Last Set of Vital Signs Vital Signs Date Time Temp Pulse Resp B/P (MAP) Pulse Ox O2 Delivery O2 Flow Rate FiO2 08/13/18 18:00 101 24 99/64 (76) 98 Room Air 08/13/18 16:27 97.2 08/13/18 16:27 2.00 Capillary Refill : Less Than 3 Seconds I&O Intake and Output 08/13/18 00:00 Intake Total 970 ml Balance 970 ml Intake Oral 850 ml IV Total 120 ml # Voids 7 # Bowel Movements 4 General: Alert, Oriented X3, Cooperative, No Acute Distress Lungs: Other (diffuse crackles, normal work of breathing) Heart: Regular Rate, No Murmurs Abdomen: Normal Bowel Sounds, Soft, No Tenderness, No Masses Extremities: No Edema, No Tenderness/Swelling Skin: No Rashes, No Breakdown Neuro: Normal Speech, Strength at 5/5 X4 Ext, Sensation Intact, Cranial Nerves 3-12 NL Results/Procedures Lab Laboratory Tests 08/13/18 04:50: White Blood Count 11.1H, Red Blood Count 4.31L, Hemoglobin 10.3L, Hematocrit 33L , Mean Corpuscular Volume 76L, Mean Corpuscular Hemoglobin 24L, Mean Corpuscular Hemoglobin Concent 32, Red Cell Distribution Width 14.7H, Platelet Count 737H, Mean Platelet Volume 8.1, Neutrophils (%) (Auto) 80H, Lymphocytes (%) (Auto) 12, Monocytes (%) (Auto) 8, Eosinophils (%) (Auto) 1, Basophils (%) (Auto) 0, Neutrophils # (Auto) 8.9H, Lymphocytes # (Auto) 1.3, Monocytes # (Auto) 0.9, Eosinophils # (Auto) 0.1, Basophils # (Auto) 0.0, Sodium Level 132L, Potassium Level 4.3, Chloride Level 101, Carbon Dioxide Level 22, Anion Gap 9, Blood Urea Nitrogen 6L, Creatinine 0.66, Estimat Glomerular Filtration Rate > 60, BUN/Creatinine Ratio 9, Glucose Level 124H, Calcium Level 8.5, Corrected Calcium 9.5, Phosphorus Level 3.4, Magnesium Level 1.4L, Total Bilirubin 0.3, Aspartate Amino Transf (AST/SGOT) 15, Alanine Aminotransferase (ALT/SGPT) 29, Alkaline Phosphatase 139H, Total Protein 6.2L, Albumin 2.7L 08/13/18 09:35: Vancomycin Level Trough 5.1L 08/13/18 12:16: Glucometer 145H 08/13/18 17:21: Glucometer 129H Microbiology 08/12/18 Blood Culture - Preliminary, Resulted No growth 08/13/18 Gram Stain - Final, Resulted 08/13/18 Bronchial Culture, Resulted Pending 08/13/18 Fungal Culture 1, Resulted Pending Assessment/Plan Assessment/Plan (1) Cough Status: Acute Assessment & Plan: - CXR and CT concerning for TB, TB precautions, TB skin test done, Quanterferon Gold ordered, Dr Gomez consulted for bronch 08/13: Bronch today with washing, fungal panel pending, HIV neg (2) Weight loss, unintentional Status: Acute (3) Microcytic anemia Status: Acute Assessment & Plan: - Peripheral smear pending, iron panel pending (4) Sepsis Status: Acute Assessment & Plan: - LA resolved, IVFs 30 ml/kg, Vanc/Zosyn/Azithromycin started, blood cultures pending Qualifiers: Qualified Codes: A41.9 - Sepsis, unspecified organism (5) Pneumonia Status: Acute Qualifiers: Qualified Codes: J18.9 - Pneumonia, unspecified organism (6) Non-insulin dependent type 2 diabetes mellitus Status: Chronic Assessment & Plan: - A1c pending (7) Hypomagnesemia Status: Acute Assessment & Plan: 08/13: Replace and repeat (8) Hyponatremia Status: Acute Assessment & Plan: 08/13: Likely 2/2 lung dz process, will continue to monitor Clinical Quality Measures DVT/VTE Risk/Contraindication: RFS Level Per Nursing on Admit: 0=No Risk/No VTE PPX NAKUL CARDOZO MD Aug 13, 2018 19:22
[2018-08-13] MEDS: RT-ALBUTEROL SULF 2.5 MG/3 ML PRE-MIX VIAL INH SCH (21:20)
[2018-08-14] VITALS (19 sets, daily range): BP systolic 84–107; BP diastolic 47–79
[2018-08-14] MEDS: inSUlin ASPART (NovoLOG) 1 UNIT/0.01 ML (CHARGE PER UNIT) SC SCH ×4 (00:17→18:32)
[2018-08-14] MEDS: PIPERACILLIN/TAZOBACTAM (BULK) 4.5 GM in NS (IVPB) 100 ML IV SCH ×3 (01:00→18:05)
[2018-08-14 03:31] LABS: BASOPHILS % (AUTO) 0 % (0-10); EOSINOPHILS # (AUTO) 0.1 10^3/uL (0.0-0.3); EOSINOPHILS % (AUTO) 1 % (0-10); HEMATOCRIT 31 % (40-54); HEMOGLOBIN 9.9 G/DL (13.3-17.7); LYMPHOCYTES # (AUTO) 1.7 X 10^3 (1.0-4.0); LYMPHOCYTES % (AUTO) 12 % (12-44); MEAN CORPUSCULAR HEMOGLOBIN 24 PG (25-34); MEAN CORPUSCULAR HGB CONC 32 G/DL (32-36); MEAN CORPUSCULAR VOLUME 76 FL (80-99); MEAN PLATELET VOLUME 8.4 FL (7.4-10.4); MONOCYTES # (AUTO) 1.1 X 10^3 (0.0-1.0); MONOCYTES % (AUTO) 8 % (0-12); NEUTROPHILS # (AUTO) 10.7 X 10^3 (1.8-7.8); NEUTROPHILS % (AUTO) 79 % (42-75); PLATELET COUNT 765 10^3/uL (130-400); RED CELL DISTRIBUTION WIDTH 14.9 % (10.0-14.5); WHITE BLOOD COUNT 13.6 10^3/uL (4.3-11.0)
[2018-08-14 03:44] LABS: ALANINE AMINOTRANSFERASE 23 U/L (0-55); ALBUMIN 2.7 GM/DL (3.2-4.5); ALKALINE PHOSPHATASE 127 U/L (40-136); BILIRUBIN,TOTAL 0.2 MG/DL (0.1-1.0); BUN/CREATININE RATIO 13; CALCIUM 8.8 MG/DL (8.5-10.1); CARBON DIOXIDE 22 MMOL/L (21-32); CHLORIDE 101 MMOL/L (98-107); CREATININE SERUM 0.69 MG/DL (0.60-1.30); GFR ESTIMATED > 60; GLUCOSE 186 MG/DL (70-105); MAGNESIUM 1.6 MG/DL (1.8-2.4); PHOSPHORUS 3.6 MG/DL (2.3-4.7); SODIUM 131 MMOL/L (135-145); TOTAL PROTEIN 6.4 GM/DL (6.4-8.2)
[2018-08-14] MEDS: POTASSIUM CL 10MEQ/50ML IVPB 50 ML IV SCH (04:11)
[2018-08-14] MEDS: MAGNESIUM 1 GM/100 ML IVPB 100 ML IV SCH ×3 (04:11→04:12)
[2018-08-14] MEDS: KCL 20 MEQ TAB (K-DUR) PO SCH (04:11)
--- NOTE | 2018-08-14 05:11 | Pulmonary Progress Note ---
Subjective Time Seen by a Provider: 05:11 Subjective/Events-last exam No complications noted. Sepsis Event Evaluation Height, Weight, BMI Height: 5'3.00" Weight: 96lbs. 6.0oz. 43.483127go; 17.1 BMI Method: Focused Exam Lactate Level 08/12/18 01:45: Lactic Acid Level 3.00*H 08/12/18 05:45: Lactic Acid Level 1.75 Exam Exam Vital Signs Date Time Temp Pulse Resp B/P (MAP) Pulse Ox O2 Delivery O2 Flow Rate FiO2 08/14/18 05:00 81 20 98/58 (71) 97 Room Air 08/14/18 04:00 90 24 107/64 (78) 93 Room Air 08/14/18 04:00 97 Nasal Cannula 2.00 08/14/18 03:00 84 22 88/56 (67) 97 Room Air 08/14/18 01:00 88 20 102/62 (75) 97 Room Air 08/14/18 01:00 88 08/14/18 00:00 97 Nasal Cannula 2.00 08/13/18 23:00 92 22 89/65 (73) 97 Room Air 08/13/18 22:00 105 25 104/72 (83) 96 Room Air 08/13/18 21:21 95 Nasal Cannula 2.00 08/13/18 21:00 98 28 95/67 (76) 96 Room Air 08/13/18 20:00 110 24 108/72 (84) 93 Room Air 08/13/18 20:00 99.4 08/13/18 20:00 97 Nasal Cannula 2.00 08/13/18 19:00 93 25 92/57 (69) 96 Room Air 08/13/18 19:00 96 08/13/18 18:00 101 24 99/64 (76) 98 Room Air 08/13/18 17:00 96 24 181/130 (147) 98 Room Air 08/13/18 16:27 97.2 08/13/18 16:27 97 Nasal Cannula 2.00 08/13/18 16:00 89 25 98/59 (72) 95 Room Air 08/13/18 15:00 92 23 103/70 (81) 96 Room Air 08/13/18 14:00 98 24 98/74 (82) 98 Room Air 08/13/18 13:00 95 08/13/18 13:00 92 19 102/75 (84) 98 Room Air 08/13/18 12:00 117 31 100/75 (83) 95 Room Air 08/13/18 12:00 97 Nasal Cannula 2.00 08/13/18 11:30 97.9 08/13/18 11:00 100 23 113/80 (91) 97 Room Air 08/13/18 10:00 85 20 93/59 (70) 95 Room Air 08/13/18 09:00 84 23 90/53 (65) 97 08/13/18 08:20 95 Room Air 08/13/18 08:00 98.8 08/13/18 08:00 104 25 74/46 (55) 98 Room Air 08/13/18 07:00 90 08/13/18 07:00 92 27 93/61 (72) 95 08/13/18 06:00 91 27 95/58 (70) 92 Room Air I & O 08/14/18 07:00 Intake Total 350 ml Output Total 750 ml Balance -400 ml Height & Weight Height: 5'3.00" Weight: 96lbs. 6.0oz. 43.581879ar; 17.1 BMI Method: General Appearance: Anxious, Mild Distress, Thin HEENT: PERRL/EOMI, Normal ENT Inspection, Pharynx Normal Neck: Full Range of Motion, Non Tender, Supple Respiratory: No Accessory Muscle Use, No Respiratory Distress, Decreased Breath Sounds Cardiovascular: Regular Rate, Rhythm, No Edema, No Gallop Capillary Refill: Less Than 3 Seconds Gastrointestinal: normal bowel sounds, non tender, soft, no organomegaly Extremity: Normal Capillary Refill, No Pedal Edema Neurologic/Psychiatric: Alert, Oriented x3 Skin: Normal Color, Warm/Dry Lymphatic: No Adenopathy Results Lab Laboratory Tests 08/12/18 05:45 08/13/18 04:50 08/14/18 02:53 Assessment/Plan Assessment/Plan Severe bilateral cavitary pneumonia r/o TB -Continue beulah parnell -agarwal cultures - pending -Check HIV -- neg -Check serum fungal panel - pending -TB quantaferon -s/p bronchoscopy severe sepsis -Continue Abx and await cultures Hypomag -replace DM -Monitor YUSUF BECERRA DO Aug 14, 2018 05:11
[2018-08-14] MEDS: RT-ALBUTEROL SULF 2.5 MG/3 ML PRE-MIX VIAL INH SCH ×2 (07:23→21:18)
--- NOTE | 2018-08-14 07:27 | Diagnostic Imaging Report ---
CLINICAL INDICATION: Patient with possible TB infection. EXAM: Portable chest x-ray upright view. COMPARISONS: Chest x-ray dated 08/13/2018. FINDINGS: Stable diffuse patchy airspace consolidations throughout the left lung. There is a subtle improved aeration of the right lung with persistent moderate airspace opacities throughout. The left costophrenic angle region is obscured and left pleural effusion cannot be excluded. There is stable pleural thickening of the left lung apex region. There is no pneumothorax. There is no right pleural effusion. Cardiac silhouette and pulmonary vasculature is obscured. The remainder of this exam shows no significant interval change compared to the prior study of comparison. IMPRESSION: There is subtle improved aeration of the right lung. Otherwise, there is no other significant change to the diffuse patchy areas of consolidation (left side more than the right). Dictated by: Dictated on workstation # [id number]
[2018-08-14] MEDS ORDERED: TROUGH ORDER-PHARMACY XX ONE (09:00)
[2018-08-14 10:02] LABS: ALANINE AMINOTRANSFERASE 24 U/L (0-55); ALBUMIN 2.9 GM/DL (3.2-4.5); ALKALINE PHOSPHATASE 127 U/L (40-136); BILIRUBIN,TOTAL 0.2 MG/DL (0.1-1.0); BUN/CREATININE RATIO 13; CALCIUM 8.7 MG/DL (8.5-10.1); CARBON DIOXIDE 23 MMOL/L (21-32); CHLORIDE 101 MMOL/L (98-107); GFR ESTIMATED > 60; GLUCOSE 148 MG/DL (70-105); POTASSIUM 4.5 MMOL/L (3.6-5.0); SODIUM 130 MMOL/L (135-145); TOTAL PROTEIN 6.7 GM/DL (6.4-8.2)
[2018-08-14] MEDS: VANCOMYCIN 1500 MG/NS 500 ML IVPB IV SCH ×4 (13:05→22:00)
[2018-08-14] MEDS: PYRIDOXINE (VITAMIN B-6) 50 MG TABLET PO SCH (15:00)
[2018-08-14] MEDS: ISONIAZID 300 MG PO SCH (15:00)
[2018-08-14] MEDS: ETHAMBUTOL 400 MG PO SCH (15:00)
[2018-08-14] MEDS: PYRAZINAMIDE 500 MG PO SCH (15:01)
[2018-08-14] MEDS: RIFAMPIN 150 MG (RIFADIN) CAP PO SCH (15:02)
[2018-08-14] MEDS: NS IV 1000 ML 1,000 ML IV SCH ×2 (15:44→20:00)
--- NOTE | 2018-08-14 16:14 | Progress Note (SOAP) ---
Subjective Subjective/Events-last exam Patient comfortable. On RA this AM. Tolerating PO diet Review of Systems Date Seen by Provider: Aug 14, 2018 Time Seen by Provider: 11:40 General: No Chills; Malaise Pulmonary: No Dyspnea; Cough Cardiovascular: No: Chest Pain, Palpitations, Edema Gastrointestinal: No: Nausea, Vomiting, Abdominal Pain Neurological: Weakness Focused Exam Lactate Level 08/12/18 01:45: Lactic Acid Level 3.00*H 08/12/18 05:45: Lactic Acid Level 1.75 Objective Exam Last Set of Vital Signs Vital Signs Date Time Temp Pulse Resp B/P (MAP) Pulse Ox O2 Delivery O2 Flow Rate FiO2 08/14/18 13:00 87 08/14/18 13:00 27 93/63 (73) 99 Room Air 08/14/18 12:00 2.00 08/14/18 11:30 97.8 Capillary Refill : Less Than 3 Seconds I&O Intake and Output 08/14/18 00:00 Intake Total 1807.5 ml Output Total 750 ml Balance 1057.5 ml Intake Oral 550 ml IV Total 1257.5 ml Output Urine Total 750 ml # Voids 4 # Bowel Movements 2 General: Alert, Oriented X3, Cooperative, No Acute Distress HEENT: Mucous Memb Moist/[place] Lungs: Other (Diminished breath sounds in left lung, diffuse crackles) Heart: Regular Rate, No Murmurs Abdomen: Normal Bowel Sounds, Soft, No Tenderness, No Masses Extremities: No Edema, No Tenderness/Swelling Psych/Mental Status: Mental Status NL, Mood NL Results/Procedures Lab Laboratory Tests 08/13/18 17:21: Glucometer 129H 08/14/18 02:53: White Blood Count 13.6H, Red Blood Count 4.10L, Hemoglobin 9.9L, Hematocrit 31L, Mean Corpuscular Volume 76L, Mean Corpuscular Hemoglobin 24L, Mean Corpuscular Hemoglobin Concent 32, Red Cell Distribution Width 14.9H, Platelet Count 765H, Mean Platelet Volume 8.4, Neutrophils (%) (Auto) 79H, Lymphocytes (%) (Auto) 12, Monocytes (%) (Auto) 8, Eosinophils (%) (Auto) 1, Basophils (%) (Auto) 0, Neutrophils # (Auto) 10.7H, Lymphocytes # (Auto) 1.7, Monocytes # (Auto) 1.1H, Eosinophils # (Auto) 0.1, Basophils # (Auto) 0.0, Sodium Level 131L, Potassium Level 4.0, Chloride Level 101, Carbon Dioxide Level 22, Anion Gap 8, Blood Urea Nitrogen 9, Creatinine 0.69, Estimat Glomerular Filtration Rate > 60, BUN/Creatinine Ratio 13, Glucose Level 186H, Calcium Level 8.8, Corrected Calcium 9.8, Phosphorus Level 3.6, Magnesium Level 1.6L, Total Bilirubin 0.2, Aspartate Amino Transf (AST/SGOT) 12, Alanine Aminotransferase (ALT/SGPT) 23, Alkaline Phosphatase 127, Total Protein 6.4, Albumin 2.7L 08/14/18 09:35: Sodium Level 130L, Potassium Level 4.5, Chloride Level 101, Carbon Dioxide Level 23, Anion Gap 6, Blood Urea Nitrogen 8, Creatinine 0.60, Estimat Glomerular Filtration Rate > 60, BUN/Creatinine Ratio 13, Glucose Level 148H, Calcium Level 8.7, Corrected Calcium 9.6, Total Bilirubin 0.2, Aspartate Amino Transf (AST/S GOT) 15, Alanine Aminotransferase (ALT/SGPT) 24, Alkaline Phosphatase 127, Total Protein 6.7, Albumin 2.9L, Vancomycin Level Trough 11.7 08/14/18 11:44: Glucometer 198H Microbiology 08/12/18 Blood Culture - Preliminary, Resulted No growth 08/13/18 Gram Stain - Final, Resulted 08/13/18 Bronchial Culture - Preliminary, Resulted Usual oral bessy 08/13/18 Fungal Culture 1 - Preliminary, Resulted Culture In Progress Assessment/Plan Assessment/Plan (1) Cough Status: Acute Assessment & Plan: - CXR and CT concerning for TB, TB precautions, TB skin test done, Quanterferon Gold ordered, Dr Gomez consulted for bronch 08/13: Bronch today with washing, fungal panel pending, HIV neg 08/14: + Quat Gold and Acid Fast stain, 4-drug therapy initiated (2) Weight loss, unintentional Status: Acute (3) Microcytic anemia Status: Acute Assessment & Plan: - Peripheral smear pending, iron panel pending 08/14: Iron Deficiency, will need replacement, will wait until treatment started (4) Sepsis Status: Acute Assessment & Plan: - LA resolved, IVFs 30 ml/kg, Vanc/Zosyn/Azithromycin started, blood cultures pending Qualifiers: Qualified Codes: A41.9 - Sepsis, unspecified organism (5) Pneumonia Status: Acute Qualifiers: Qualified Codes: J18.9 - Pneumonia, unspecified organism (6) Non-insulin dependent type 2 diabetes mellitus Status: Chronic Assessment & Plan: - A1c pending 08/14: A1c 13, SSI (7) Hypomagnesemia Status: Acute Assessment & Plan: 08/13: Replace and repeat (8) Hyponatremia Status: Acute Assessment & Plan: 08/13: Likely 2/2 lung dz process, will continue to monitor (9) Positive QuantiFERON-TB Gold test Status: Acute Clinical Quality Measures DVT/VTE Risk/Contraindication: RFS Level Per Nursing on Admit: 0=No Risk/No VTE PPX NAKUL CARDOZO MD Aug 14, 2018 16:13
[2018-08-14] MEDS ORDERED: ACETAMINOPHEN 325 MG TABLET PO NR (20:30)
[2018-08-15] VITALS (23 sets, daily range): BP systolic 85–124; BP diastolic 48–89
[2018-08-15] MEDS: inSUlin ASPART (NovoLOG) 1 UNIT/0.01 ML (CHARGE PER UNIT) SC SCH ×4 (00:02→18:00)
[2018-08-15] MEDS: PIPERACILLIN/TAZOBACTAM (BULK) 4.5 GM in NS (IVPB) 100 ML IV SCH ×3 (00:46→17:40)
[2018-08-15 03:13] LABS: BASOPHILS % (AUTO) 0 % (0-10); EOSINOPHILS # (AUTO) 0.1 10^3/uL (0.0-0.3); EOSINOPHILS % (AUTO) 1 % (0-10); HEMATOCRIT 31 % (40-54); HEMOGLOBIN 9.7 G/DL (13.3-17.7); LYMPHOCYTES # (AUTO) 1.1 X 10^3 (1.0-4.0); LYMPHOCYTES % (AUTO) 9 % (12-44); MEAN CORPUSCULAR HEMOGLOBIN 24 PG (25-34); MEAN CORPUSCULAR HGB CONC 31 G/DL (32-36); MEAN CORPUSCULAR VOLUME 76 FL (80-99); MEAN PLATELET VOLUME 8.1 FL (7.4-10.4); MONOCYTES # (AUTO) 0.8 X 10^3 (0.0-1.0); MONOCYTES % (AUTO) 7 % (0-12); NEUTROPHILS # (AUTO) 10.1 X 10^3 (1.8-7.8); NEUTROPHILS % (AUTO) 83 % (42-75); PLATELET COUNT 677 10^3/uL (130-400); RED CELL DISTRIBUTION WIDTH 14.7 % (10.0-14.5); WHITE BLOOD COUNT 12.2 10^3/uL (4.3-11.0)
[2018-08-15 03:35] LABS: ALANINE AMINOTRANSFERASE 25 U/L (0-55); ALBUMIN 2.7 GM/DL (3.2-4.5); ALKALINE PHOSPHATASE 126 U/L (40-136); BILIRUBIN,TOTAL 0.4 MG/DL (0.1-1.0); BUN/CREATININE RATIO 14; CALCIUM 8.6 MG/DL (8.5-10.1); CARBON DIOXIDE 21 MMOL/L (21-32); CHLORIDE 102 MMOL/L (98-107); CREATININE SERUM 0.74 MG/DL (0.60-1.30); GFR ESTIMATED > 60; GLUCOSE 151 MG/DL (70-105); MAGNESIUM 1.5 MG/DL (1.8-2.4); PHOSPHORUS 4.2 MG/DL (2.3-4.7); POTASSIUM 4.2 MMOL/L (3.6-5.0); SODIUM 132 MMOL/L (135-145); TOTAL PROTEIN 6.2 GM/DL (6.4-8.2)
[2018-08-15] MEDS: MAGNESIUM 1 GM/100 ML IVPB 100 ML IV SCH ×3 (03:45→04:45)
[2018-08-15] MEDS: POTASSIUM CL 10MEQ/50ML IVPB 50 ML IV SCH (03:46)
[2018-08-15] MEDS: KCL 20 MEQ TAB (K-DUR) PO SCH (03:46)
[2018-08-15] MEDS ORDERED: NS IV 1000 ML 1,000 ML IV SCH (05:30)
--- NOTE | 2018-08-15 06:18 | Pulmonary Progress Note ---
Subjective Time Seen by a Provider: 06:54 Subjective/Events-last exam Pt is spiking fevers still. Sepsis Event Evaluation Height, Weight, BMI Height: 5'3.00" Weight: 96lbs. 6.0oz. 43.228514or; 17.1 BMI Method: Exam Exam Vital Signs Date Time Temp Pulse Resp B/P (MAP) Pulse Ox O2 Delivery O2 Flow Rate FiO2 08/15/18 06:00 106 12 100/62 (75) 95 Room Air 08/15/18 05:00 84 20 93/55 (68) 94 Room Air 08/15/18 04:00 99.0 08/15/18 04:00 94 27 90/63 (72) 94 Room Air 08/15/18 04:00 97 Nasal Cannula 2.00 08/15/18 03:00 81 30 86/56 (66) 94 Room Air 08/15/18 02:00 81 24 93 Room Air 08/15/18 01:00 101 20 87/58 (68) 94 Room Air 08/15/18 01:00 91 08/15/18 00:00 97 Nasal Cannula 2.00 08/15/18 00:00 93 23 85/54 (64) 92 Room Air 08/15/18 00:00 99.7 08/14/18 23:00 99 22 87/51 (63) 92 Room Air 08/14/18 22:17 102.0 08/14/18 22:00 121 22 85/53 (64) 92 Room Air 08/14/18 21:18 91 Nasal Cannula 2.00 08/14/18 21:00 115 28 100/62 (75) 91 Room Air 08/14/18 20:00 112 25 91/47 (62) 92 Room Air 08/14/18 20:00 97 Nasal Cannula 2.00 08/14/18 20:00 102.7 08/14/18 19:00 114 08/14/18 19:00 114 29 93 Room Air 08/14/18 18:00 117 34 93/79 (84) 96 Room Air 08/14/18 17:00 96 26 101/69 (80) 97 Room Air 08/14/18 16:00 100 27 93 Room Air 08/14/18 16:00 97 Nasal Cannula 2.00 08/14/18 15:30 97.9 08/14/18 15:00 87 27 100/74 (83) 98 Room Air 08/14/18 14:00 91 29 99/66 (77) 95 Room Air 08/14/18 13:00 87 08/14/18 13:00 87 27 93/63 (73) 99 Room Air 08/14/18 12:00 97 Nasal Cannula 2.00 08/14/18 12:00 103 29 86/58 (67) 95 Room Air 08/14/18 11:30 97.8 08/14/18 11:00 81 20 90/55 (67) 97 Room Air 08/14/18 10:00 92 37 94/62 (73) 96 Room Air 08/14/18 09:00 84 18 84/51 (62) 97 Room Air 08/14/18 08:00 97 Nasal Cannula 2.00 08/14/18 08:00 87 20 88/55 (66) 97 Room Air 08/14/18 07:23 98 Nasal Cannula 2.00 08/14/18 07:00 95 19 97 Room Air 08/14/18 07:00 95 I & O 08/15/18 07:00 Intake Total 400 ml Balance 400 ml Height & Weight Height: 5'3.00" Weight: 96lbs. 6.0oz. 43.850201an; 17.1 BMI Method: General Appearance: Anxious, Mild Distress, Thin HEENT: PERRL/EOMI, Normal ENT Inspection, Pharynx Normal Neck: Full Range of Motion, Non Tender, Supple Respiratory: No Accessory Muscle Use, No Respiratory Distress, Decreased Breath Sounds Cardiovascular: Regular Rate, Rhythm, No Edema, No Gallop Capillary Refill: Less Than 3 Seconds Gastrointestinal: normal bowel sounds, non tender, soft, no organomegaly Extremity: Normal Capillary Refill, No Pedal Edema Neurologic/Psychiatric: Alert, Oriented x3 Skin: Normal Color, Warm/Dry Lymphatic: No Adenopathy Results Lab Laboratory Tests 08/14/18 02:53 08/14/18 09:35 08/15/18 03:04 Assessment/Plan Assessment/Plan Active TB with severe bilateral cavitary pneumonia -Continue vanco, zosyn and await cultures -Continue RIPE therapy -agarwal cultures - pending -Check HIV -- neg -Check serum fungal panel - pending -TB quantaferon -s/p bronchoscopy Hyponatremia -Monitor severe sepsis -Continue Abx and await cultures Hypomag -replace DM -Monitor YUSUF BECERRA DO Aug 15, 2018 06:18
[2018-08-15] MEDS: NS IV 1000 ML 1,000 ML IV SCH (08:32)
[2018-08-15] MEDS: VANCOMYCIN 1500 MG/NS 500 ML IVPB IV SCH ×4 (08:32→20:43)
--- NOTE | 2018-08-15 08:57 | Progress Note (SOAP) ---
Subjective Subjective/Events-last exam Patient with poor communication due to language barrier Review of Systems Date Seen by Provider: Aug 15, 2018 Time Seen by Provider: 07:00 Objective Exam Last Set of Vital Signs Vital Signs Date Time Temp Pulse Resp B/P (MAP) Pulse Ox O2 Delivery O2 Flow Rate FiO2 08/15/18 08:00 86 22 106/73 (84) 94 Room Air 08/15/18 04:00 99.0 08/15/18 04:00 2.00 Capillary Refill : Less Than 3 Seconds I&O Intake and Output 08/15/18 00:00 Intake Total 400 ml Balance 400 ml Intake Oral 400 ml # Voids 7 # Bowel Movements 2 General: No Acute Distress Results/Procedures Lab Laboratory Tests 08/14/18 09:35: Sodium Level 130L, Potassium Level 4.5, Chloride Level 101, Carbon Dioxide Level 23, Anion Gap 6, Blood Urea Nitrogen 8, Creatinine 0.60, Estimat Glomerular Filtration Rate > 60, BUN/Creatinine Ratio 13, Glucose Level 148H, Calcium Level 8.7, Corrected Calcium 9.6, Total Bilirubin 0.2, Aspartate Amino Transf (AST/SGOT) 15, Alanine Aminotransferase (ALT/SGPT) 24, Alkaline Phosphatase 127, Total Protein 6.7, Albumin 2.9L, Vancomycin Level Trough 11.7 08/14/18 11:44: Glucometer 198H 08/14/18 17:56: Glucometer 166H 08/14/18 23:55: Glucometer 200H 08/15/18 03:04: White Blood Count 12.2H, Red Blood Count 4.05L, Hemoglobin 9.7L, Hematocrit 31L, Mean Corpuscular Volume 76L, Mean Corpuscular Hemoglobin 24L, Mean Corpuscular Hemoglobin Concent 31L, Red Cell Distribution Width 14.7H, Platelet Count 677H, Mean Platelet Volume 8.1, Neutrophils (%) (Auto) 83H, Lymphocytes (%) (Auto) 9L, Monocytes (%) (Auto) 7, Eosinophils (%) (Auto) 1, Basophils (%) (Auto) 0, Neutro phils # (Auto) 10.1H, Lymphocytes # (Auto) 1.1, Monocytes # (Auto) 0.8, Eosinophils # (Auto) 0.1, Basophils # (Auto) 0.0, Sodium Level 132L, Potassium Level 4.2, Chloride Level 102, Carbon Dioxide Level 21, Anion Gap 9, Blood Urea Nitrogen 10, Creatinine 0.74, Estimat Glomerular Filtration Rate > 60, BUN/Creatinine Ratio 14, Glucose Level 151H, Calcium Level 8.6, Corrected Calcium 9.6, Phosphorus Level 4.2, Magnesium Level 1.5L, Total Bilirubin 0.4, Aspartate Amino Transf (AST/SGOT) 17, Alanine Aminotransferase (ALT/SGPT) 25, Alkaline Phosphatase 126, Total Protein 6.2L, Albumin 2.7L Microbiology 08/12/18 Blood Culture - Preliminary, Resulted No growth 08/13/18 Mycobacterial Culture - Preliminary, Resulted Assessment/Plan Assessment/Plan (1) Cough Status: Acute Assessment & Plan: - CXR and CT concerning for TB, TB precautions, TB skin test done, Quanterferon Gold ordered, Dr Gomez consulted for bronch 08/13: Bronch today with washing, fungal panel pending, HIV neg 08/14: + Quat Gold and Acid Fast stain, 4-drug therapy initiated 08/15: Patient with confirmed active TB -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 He is currently also on vancomycin and Zosyn until final cultures return. (2) Weight loss, unintentional Status: Acute Assessment & Plan: 08/15: Weight loss due to combination of TB illness and diabetes undiagnosed (3) Microcytic anemia Status: Acute Assessment & Plan: - Peripheral smear pending, iron panel pending 08/14: Iron Deficiency, will need replacement, will wait until treatment started (4) Sepsis Status: Acute Assessment & Plan: - LA resolved, IVFs 30 ml/kg, Vanc/Zosyn/Azithromycin started, blood cultures pending Qualifiers: Qualified Codes: A41.9 - Sepsis, unspecified organism (5) Pneumonia Status: Acute Qualifiers: Qualified Codes: J18.9 - Pneumonia, unspecified organism (6) Non-insulin dependent type 2 diabetes mellitus Status: Chronic Assessment & Plan: - A1c pending 08/14: A1c 13, SSI 08/15: Patient on sliding scale insulin currently. His glucose values have been in the upper 100 range. -Will continue to monitor and place him on medications prior to dismissal. (7) Hypomagnesemia Status: Acute Assessment & Plan: 08/13: Replace and repeat (8) Hyponatremia Status: Acute Assessment & Plan: 08/13: Likely 2/2 lung dz process, will continue to monitor (9) Positive QuantiFERON-TB Gold test Status: Acute Clinical Quality Measures DVT/VTE Risk/Contraindication: RFS Level Per Nursing on Admit: 0=No Risk/No VTE PPX DARYL HUBBARD MD Aug 15, 2018 08:57
--- NOTE | 2018-08-15 09:48 | Diagnostic Imaging Report ---
Indication: TB infection. Extensive nodular bilateral infiltrates involve the left greater than right lung and showed no change from prior. No pneumothorax found. Heart size within normal limits. Impression: Unchanged extensive 5 lobed infiltrates greater left. Dictated by: Dictated on workstation # [id number]
[2018-08-15] MEDS: RIFAMPIN 150 MG (RIFADIN) CAP PO SCH (12:07)
[2018-08-15] MEDS: PYRAZINAMIDE 500 MG PO SCH (12:07)
[2018-08-15] MEDS: ISONIAZID 300 MG PO SCH (12:08)
[2018-08-15] MEDS: PYRIDOXINE (VITAMIN B-6) 50 MG TABLET PO SCH (12:08)
[2018-08-15] MEDS: ETHAMBUTOL 400 MG PO SCH (12:10)
[2018-08-15] MEDS: RT-ALBUTEROL SULF 2.5 MG/3 ML PRE-MIX VIAL INH SCH (18:58)
[2018-08-15] MEDS: ACETAMINOPHEN 325 MG TABLET PO PRN (20:43)
[2018-08-16] VITALS (20 sets, daily range): BP systolic 80–117; BP diastolic 49–99
[2018-08-16] MEDS: PIPERACILLIN/TAZOBACTAM (BULK) 4.5 GM in NS (IVPB) 100 ML IV SCH ×3 (00:51→16:43)
[2018-08-16] MEDS: inSUlin ASPART (NovoLOG) 1 UNIT/0.01 ML (CHARGE PER UNIT) SC SCH ×4 (01:01→16:43)
[2018-08-16 03:43] LABS: BASOPHILS % (AUTO) 0 % (0-10); EOSINOPHILS # (AUTO) 0.3 10^3/uL (0.0-0.3); EOSINOPHILS % (AUTO) 3 % (0-10); HEMATOCRIT 31 % (40-54); HEMOGLOBIN 9.6 G/DL (13.3-17.7); LYMPHOCYTES # (AUTO) 1.2 X 10^3 (1.0-4.0); LYMPHOCYTES % (AUTO) 14 % (12-44); MEAN CORPUSCULAR HEMOGLOBIN 24 PG (25-34); MEAN CORPUSCULAR HGB CONC 31 G/DL (32-36); MEAN CORPUSCULAR VOLUME 75 FL (80-99); MEAN PLATELET VOLUME 8.3 FL (7.4-10.4); MONOCYTES # (AUTO) 0.9 X 10^3 (0.0-1.0); MONOCYTES % (AUTO) 10 % (0-12); NEUTROPHILS # (AUTO) 6.4 X 10^3 (1.8-7.8); NEUTROPHILS % (AUTO) 73 % (42-75); PLATELET COUNT 720 10^3/uL (130-400); RED CELL DISTRIBUTION WIDTH 15.1 % (10.0-14.5); WHITE BLOOD COUNT 8.8 10^3/uL (4.3-11.0)
[2018-08-16 04:08] LABS: ALANINE AMINOTRANSFERASE 22 U/L (0-55); ALBUMIN 2.6 GM/DL (3.2-4.5); ALKALINE PHOSPHATASE 120 U/L (40-136); BILIRUBIN,TOTAL 0.3 MG/DL (0.1-1.0); BUN/CREATININE RATIO 11; CALCIUM 8.5 MG/DL (8.5-10.1); CARBON DIOXIDE 21 MMOL/L (21-32); CHLORIDE 102 MMOL/L (98-107); CREATININE SERUM 0.71 MG/DL (0.60-1.30); GFR ESTIMATED > 60; GLUCOSE 161 MG/DL (70-105); MAGNESIUM 1.5 MG/DL (1.8-2.4); PHOSPHORUS 3.8 MG/DL (2.3-4.7); SODIUM 133 MMOL/L (135-145); TOTAL PROTEIN 6.4 GM/DL (6.4-8.2)
[2018-08-16] MEDS: KCL 20 MEQ TAB (K-DUR) PO SCH (04:13)
[2018-08-16] MEDS: POTASSIUM CL 10MEQ/50ML IVPB 50 ML IV SCH (04:13)
[2018-08-16] MEDS: NS IV 1000 ML 1,000 ML IV SCH ×4 (04:14→16:49)
[2018-08-16] MEDS: MAGNESIUM 1 GM/100 ML IVPB 100 ML IV SCH ×6 (04:19→11:22)
--- NOTE | 2018-08-16 06:48 | Pulmonary Progress Note ---
Subjective Time Seen by a Provider: 06:47 Subjective/Events-last exam Pt is still spiking fevers. Sepsis Event Evaluation Height, Weight, BMI Height: 5'3.00" Weight: 96lbs. 6.0oz. 43.171853xd; 17.1 BMI Method: Exam Exam Vital Signs Date Time Temp Pulse Resp B/P (MAP) Pulse Ox O2 Delivery O2 Flow Rate FiO2 08/16/18 06:00 79 23 92/56 (68) 95 Room Air 08/16/18 05:00 77 24 97/55 (69) 95 Room Air 08/16/18 04:10 Room Air 08/16/18 04:00 97.4 08/16/18 04:00 75 18 95/55 (68) 94 Room Air 08/16/18 03:00 76 17 90/57 (68) 95 Room Air 08/16/18 02:00 105 21 93/59 (70) 94 Room Air 08/16/18 01:00 98.1 08/16/18 01:00 84 08/16/18 01:00 82 23 89/55 (66) 94 Room Air 08/16/18 00:00 Room Air 08/16/18 00:00 89 27 93/61 (72) 92 Room Air 08/15/18 23:00 93 27 96/63 (74) 93 Room Air 08/15/18 22:00 92 22 93/57 (69) 92 Room Air 08/15/18 21:40 98.1 08/15/18 21:00 102 28 102/66 (78) 94 Room Air 08/15/18 20:49 Room Air 08/15/18 20:43 101.3 08/15/18 20:30 101.3 08/15/18 20:00 112 30 108/67 (81) 93 Room Air 08/15/18 19:09 124 08/15/18 19:00 110 23 104/72 (83) 99 Room Air 08/15/18 18:58 93 Room Air 08/15/18 18:00 110 30 111/67 (82) 95 Room Air 08/15/18 17:00 94 25 100/69 (79) 93 Room Air 08/15/18 16:55 100.3 08/15/18 16:00 96 33 107/71 (83) 96 Room Air 08/15/18 16:00 97 Nasal Cannula 2.00 08/15/18 15:45 102 96 08/15/18 15:00 102 32 105/78 (87) 96 Room Air 08/15/18 14:00 85 21 87/51 (63) 94 Room Air 08/15/18 13:00 92 25 98/59 (72) 94 Room Air 08/15/18 12:40 95 08/15/18 12:00 105 13 124/89 (101) 94 Room Air 08/15/18 12:00 97 Nasal Cannula 2.00 08/15/18 11:59 99.7 08/15/18 11:00 92 26 94/58 (70) 94 Room Air 08/15/18 10:00 84 21 92/48 (63) 95 Room Air 08/15/18 08:00 86 22 106/73 (84) 94 Room Air 08/15/18 08:00 97 Nasal Cannula 2.00 08/15/18 07:00 82 08/15/18 07:00 88 99/59 (72) 94 Room Air I & O 08/16/18 07:00 Intake Total 1855 ml Balance 1855 ml Height & Weight Height: 5'3.00" Weight: 96lbs. 6.0oz. 43.486758ql; 17.1 BMI Method: General Appearance: Anxious, Mild Distress, Thin HEENT: PERRL/EOMI, Normal ENT Inspection, Pharynx Normal Neck: Full Range of Motion, Non Tender, Supple Respiratory: No Accessory Muscle Use, No Respiratory Distress, Decreased Breath Sounds Cardiovascular: Regular Rate, Rhythm, No Edema, No Gallop Capillary Refill: Less Than 3 Seconds Gastrointestinal: normal bowel sounds, non tender, soft, no organomegaly Extremity: Normal Capillary Refill, No Pedal Edema Neurologic/Psychiatric: Alert, Oriented x3 Skin: Normal Color, Warm/Dry Lymphatic: No Adenopathy Results Lab Laboratory Tests 08/14/18 09:35 08/15/18 03:04 08/16/18 03:08 Assessment/Plan Assessment/Plan Active TB with severe bilateral cavitary pneumonia -Continue vanco, zosyn and await cultures -Continue RIPE therapy -agarwal cultures - pending -Check HIV -- neg -Check serum fungal panel - pending -TB quantaferon -s/p bronchoscopy Hyponatremia -Monitor severe sepsis -Continue Abx and await cultures Hypomag -replace DM -Monitor YUSUF BECERRA DO Aug 16, 2018 06:48
[2018-08-16] MEDS: RT-ALBUTEROL SULF 2.5 MG/3 ML PRE-MIX VIAL INH SCH ×2 (07:16→20:24)
--- NOTE | 2018-08-16 07:52 | Progress Note (SOAP) ---
Subjective Subjective/Events-last exam Patient's condition is slowly improving. There is language barrier with regard to exact details. He didn't run a low-grade temperature but he is currently at 98.1. Review of Systems Date Seen by Provider: Aug 16, 2018 Time Seen by Provider: 07:55 Objective Exam Last Set of Vital Signs Vital Signs Date Time Temp Pulse Resp B/P (MAP) Pulse Ox O2 Delivery O2 Flow Rate FiO2 08/16/18 07:21 95 Room Air 08/16/18 07:00 72 08/16/18 06:00 23 92/56 (68) 08/16/18 04:00 97.4 08/15/18 16:00 2.00 Capillary Refill : Less Than 3 Seconds I&O Intake and Output 08/16/18 00:00 Intake Total 1420 ml Balance 1420 ml Intake Oral 1300 ml IV Total 120 ml # Voids 6 General: No Acute Distress Results/Procedures Lab Laboratory Tests 08/15/18 11:59: Glucometer 156H 08/15/18 16:53: Glucometer 147H 08/16/18 00:45: Glucometer 189H 08/16/18 03:08: White Blood Count 8.8, Red Blood Count 4.08L, Hemoglobin 9.6L, Hematocrit 31L, Mean Corpuscular Volume 75L, Mean Corpuscular Hemoglobin 24L, Mean Corpuscular Hemoglobin Concent 31L, Red Cell Distribution Width 15.1H, Platelet Count 720H, Mean Platelet Volume 8.3, Neutrophils (%) (Auto) 73, Lymphocytes (%) (Auto) 14, Monocytes (%) (Auto) 10, Eosinophils (%) (Auto) 3, Basophils (%) (Auto) 0, Neutrophils # (Auto) 6.4, Lymphocytes # (Auto) 1.2, Monocytes # (Auto) 0.9, Eosinophils # (Auto) 0.3, Basophils # (Auto) 0.0, Sodium Level 133L, Potassium Level 4.0, Chloride Level 102, Carbon Dioxide Level 21, Anion Gap 10, Blood Urea Nitrogen 8, Creatinine 0.71, Estimat Glomerular Filtration Rate > 60, BUN/Creatinine Ratio 11, Glucose Level 161H, Calcium Level 8.5, Corrected Calcium 9.6, Phosphorus Level 3.8, Magnesium Level 1.5L, Total Bilirubin 0.3, Aspartate Amino Transf (AST/SGOT) 15, Alanine Aminotransferase (ALT/SGPT) 22, Alkaline Phosphatase 120, Total Protein 6.4, Albumin 2.6L Microbiology 08/12/18 Blood Culture - Preliminary, Resulted No growth 08/13/18 Mycobacterial Culture - Preliminary, Resulted Assessment/Plan Assessment/Plan (1) Positive QuantiFERON-TB Gold test Status: Acute Assessment & Plan: 08/16: Patient is with confirmed active tuberculosis. He is now on rifampin 450 mg daily, isoniazid 300 mg daily, ethambutol 800 mg daily, Pyrazinamide 1000 mg daily and vitamin B6. 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 He is currently also on vancomycin and Zosyn until final cultures return. (3) Non-insulin dependent type 2 diabetes mellitus Status: Chronic Assessment & Plan: - A1c pending 08/14: A1c 13, SSI 08/15: Patient on sliding scale insulin currently. His glucose values have been in the upper 100 range. -Will continue to monitor and place him on medications prior to dismissal. 08/16: -Drug interactions with the tuberculosis meds were checked prior to initiating glyburide and metformin. Ultimately patient will need to be dismissed on a diabetic regiment so therefore glyburide 5 mg and metformin 500 twice daily was initiated today. He will stay on sliding scale insulin as well. (4) Weight loss, unintentional Status: Acute Assessment & Plan: 08/15: Weight loss due to combination of TB illness and diabetes undiagnosed (5) Microcytic anemia Status: Acute Assessment & Plan: - Peripheral smear pending, iron panel pending 08/14: Iron Deficiency, will need replacement, will wait until treatment started (6) Pneumonia Status: Acute Assessment & Plan: 08/16: Patient is currently covered on vancomycin as well as Zosyn for possible underlying pneumonia. Pulmonology following. Qualifiers: Qualified Codes: J18.9 - Pneumonia, unspecified organism (7) Sepsis Status: Acute Assessment & Plan: - LA resolved, IVFs 30 ml/kg, Vanc/Zosyn/Azithromycin started, blood cultures pending Qualifiers: Qualified Codes: A41.9 - Sepsis, unspecified organism (8) Hypomagnesemia Status: Acute Assessment & Plan: 08/13: Replace and repeat (9) Hyponatremia Status: Acute Assessment & Plan: 08/13: Likely 2/2 lung dz process, will continue to monitor Clinical Quality Measures DVT/VTE Risk/Contraindication: RFS Level Per Nursing on Admit: 0=No Risk/No VTE PPX DARYL HUBBARD MD Aug 16, 2018 07:52
[2018-08-16] MEDS ORDERED: glyBURIDE 5 MG (MICRONASE) TAB PO NR (08:23)
[2018-08-16] MEDS: VANCOMYCIN 1500 MG/NS 500 ML IVPB IV SCH ×4 (09:04→20:40)
--- NOTE | 2018-08-16 10:33 | Diagnostic Imaging Report ---
Indication: TB infection. Frontal chest obtained at 0348 hours a.m. and compared to the previous day. There is no change in extensive bilateral infiltrates compared to the prior study. There is no pneumothorax or pleural fluid. Left apical pleural thickening is unchanged. Impression: No change in extensive bilateral infiltrates compared to the previous day. There is no new abnormality. Dictated by: Dictated on workstation # [id number]
[2018-08-16] MEDS: ISONIAZID 300 MG PO SCH (11:22)
[2018-08-16] MEDS: RIFAMPIN 150 MG (RIFADIN) CAP PO SCH (11:22)
[2018-08-16] MEDS: PYRIDOXINE (VITAMIN B-6) 50 MG TABLET PO SCH (11:22)
[2018-08-16] MEDS: PYRAZINAMIDE 500 MG PO SCH (11:23)
[2018-08-16] MEDS: ETHAMBUTOL 400 MG PO SCH (11:23)
[2018-08-16] MEDS: metFORMIN 500 MG (GLUCOPHAGE) TAB PO SCH (16:42)
[2018-08-16] MEDS: ACETAMINOPHEN 325 MG TABLET PO PRN (16:49)
--- NOTE | 2018-08-16 16:58 | NUR ---
LLMN=692.8 TYLENOL 650 GIVEN PO FOR FEVER. INSTRUCTED PT AND THE NEED FOR SPUTUM SAMPLE.
[2018-08-17] VITALS (14 sets, daily range): BP systolic 80–107; BP diastolic 49–85
[2018-08-17] MEDS: inSUlin ASPART (NovoLOG) 1 UNIT/0.01 ML (CHARGE PER UNIT) SC SCH ×4 (00:08→17:59)
[2018-08-17] MEDS: PIPERACILLIN/TAZOBACTAM (BULK) 4.5 GM in NS (IVPB) 100 ML IV SCH ×3 (00:08→17:59)
[2018-08-17] MEDS: ACETAMINOPHEN 325 MG TABLET PO PRN (00:08)
[2018-08-17] MEDS ORDERED: KETOROLAC 30 MG/ML VIAL ONE (02:18)
[2018-08-17] MEDS ORDERED: KETOROLAC 30 MG/ML VIAL IVP ONE ×2 (02:30→02:45)
[2018-08-17] MEDS: NS IV 1000 ML 1,000 ML IV SCH ×3 (03:35→19:49)
[2018-08-17 03:59] LABS: BASOPHILS % (AUTO) 0 % (0-10); EOSINOPHILS # (AUTO) 0.3 10^3/uL (0.0-0.3); EOSINOPHILS % (AUTO) 3 % (0-10); HEMATOCRIT 30 % (40-54); HEMOGLOBIN 9.3 G/DL (13.3-17.7); LYMPHOCYTES % (AUTO) 9 % (12-44); MEAN CORPUSCULAR HEMOGLOBIN 24 PG (25-34); MEAN CORPUSCULAR HGB CONC 32 G/DL (32-36); MEAN CORPUSCULAR VOLUME 76 FL (80-99); MEAN PLATELET VOLUME 8.6 FL (7.4-10.4); MONOCYTES # (AUTO) 0.9 X 10^3 (0.0-1.0); MONOCYTES % (AUTO) 9 % (0-12); NEUTROPHILS # (AUTO) 8.5 X 10^3 (1.8-7.8); NEUTROPHILS % (AUTO) 79 % (42-75); PLATELET COUNT 662 10^3/uL (130-400); RED CELL DISTRIBUTION WIDTH 14.7 % (10.0-14.5); WHITE BLOOD COUNT 10.7 10^3/uL (4.3-11.0)
[2018-08-17 04:16] LABS: ALANINE AMINOTRANSFERASE 22 U/L (0-55); ALBUMIN 2.5 GM/DL (3.2-4.5); ALKALINE PHOSPHATASE 122 U/L (40-136); BILIRUBIN,TOTAL 0.2 MG/DL (0.1-1.0); BUN/CREATININE RATIO 13; CALCIUM 8.1 MG/DL (8.5-10.1); CARBON DIOXIDE 18 MMOL/L (21-32); CHLORIDE 105 MMOL/L (98-107); CREATININE SERUM 0.75 MG/DL (0.60-1.30); GFR ESTIMATED > 60; GLUCOSE 115 MG/DL (70-105); POTASSIUM 3.6 MMOL/L (3.6-5.0); SODIUM 133 MMOL/L (135-145); TOTAL PROTEIN 5.9 GM/DL (6.4-8.2)
[2018-08-17 04:26] LABS: MAGNESIUM 1.7 MG/DL (1.8-2.4); PHOSPHORUS 3.2 MG/DL (2.3-4.7)
[2018-08-17] MEDS: POTASSIUM CL 10MEQ/50ML IVPB 50 ML IV SCH ×5 (06:07→11:43)
[2018-08-17] MEDS: KCL 20 MEQ TAB (K-DUR) PO SCH (06:09)
[2018-08-17] MEDS: MAGNESIUM 1 GM/100 ML IVPB 100 ML IV SCH ×5 (06:10→10:27)
[2018-08-17] MEDS: metFORMIN 500 MG (GLUCOPHAGE) TAB PO SCH ×2 (06:28→17:59)
--- NOTE | 2018-08-17 06:56 | Pulmonary Progress Note ---
Subjective Time Seen by a Provider: 06:56 Subjective/Events-last exam Pt is now hypotensive Sepsis Event Evaluation Height, Weight, BMI Height: 5'3.00" Weight: 96lbs. 6.0oz. 43.164764px; 17.1 BMI Method: Exam Exam Vital Signs Date Time Temp Pulse Resp B/P (MAP) Pulse Ox O2 Delivery O2 Flow Rate FiO2 08/17/18 06:00 79 25 85/53 (64) 95 Room Air 08/17/18 04:21 97.0 08/17/18 04:00 Room Air 08/17/18 04:00 75 20 90/56 (67) 93 Room Air 08/17/18 03:00 92 23 94/57 (69) 93 Room Air 08/17/18 02:34 101.3 08/17/18 02:00 96 22 97/54 (68) 92 Room Air 08/17/18 01:33 101.3 08/17/18 01:33 101.3 08/17/18 01:26 100 22 94/56 (69) 90 Room Air 08/17/18 01:00 98 08/17/18 00:08 100.9 08/17/18 00:05 103 105/81 (89) 93 Room Air 08/17/18 00:00 Room Air 08/17/18 00:00 100.9 08/16/18 23:00 98 103/61 (75) 96 Room Air 08/16/18 21:00 115 104/71 (82) 95 Room Air 08/16/18 20:40 98.9 08/16/18 20:26 92 Room Air 08/16/18 20:00 Room Air 08/16/18 20:00 92 25 94/51 (65) 93 Room Air 08/16/18 19:00 103 28 95 Room Air 08/16/18 19:00 103 08/16/18 18:00 104 27 95/53 (67) 95 Room Air 08/16/18 17:00 118 32 117/69 (85) 94 Room Air 08/16/18 16:49 100.3 08/16/18 16:00 105 29 97/67 (77) 94 Room Air 08/16/18 15:29 Room Air 08/16/18 15:00 98 32 96/99 (98) 96 Room Air 08/16/18 14:00 110 26 80/49 (59) 96 Room Air 08/16/18 13:00 76 08/16/18 13:00 96 Room Air 08/16/18 13:00 70 08/16/18 12:00 Room Air 08/16/18 11:00 81 22 88/53 (65) 95 Room Air 08/16/18 10:00 102 29 102/65 (77) 94 Room Air 08/16/18 09:00 80 19 95/62 (73) 94 Room Air 08/16/18 08:00 Room Air 08/16/18 08:00 89 28 98/64 (75) 94 Room Air 08/16/18 07:21 95 Room Air 08/16/18 07:00 72 08/16/18 07:00 72 28 99/64 (76) 95 Room Air I & O0 08/17/18 07:00 Intake Total 4202 ml Output Total 200 ml Balance 4002 ml Height & Weight Height: 5'3.00" Weight: 96lbs. 6.0oz. 43.362946rg; 17.1 BMI Method: General Appearance: Anxious, Mild Distress, Thin HEENT: PERRL/EOMI, Normal ENT Inspection, Pharynx Normal Neck: Full Range of Motion, Non Tender, Supple Respiratory: No Accessory Muscle Use, No Respiratory Distress, Decreased Breath Sounds Cardiovascular: Regular Rate, Rhythm, No Edema, No Gallop Capillary Refill: Less Than 3 Seconds Gastrointestinal: normal bowel sounds, non tender, soft, no organomegaly Extremity: Normal Capillary Refill, No Pedal Edema Neurologic/Psychiatric: Alert, Oriented x3 Skin: Normal Color, Warm/Dry Lymphatic: No Adenopathy Results Lab Laboratory Tests 08/16/18 03:08 08/17/18 03:19 Assessment/Plan Assessment/Plan Active TB with severe bilateral cavitary pneumonia -Continue vanco, zosyn and await cultures -Continue RIPE therapy -agarwal cultures - pending -Check HIV -- neg -s/p bronchoscopy Hypotension -Check LA -May need to stop Metformin -Give a liter bolus of LR and run at 150 after that Hyponatremia -Monitor severe sepsis -Continue Abx and await cultures Hypomag -replace DM -Monitor YUSUF BECERRA DO Aug 17, 2018 06:56
[2018-08-17] MEDS ORDERED: LACTATED RINGERS 1,000 ML IV ONE (07:00)
[2018-08-17] MEDS: RT-ALBUTEROL SULF 2.5 MG/3 ML PRE-MIX VIAL INH SCH ×2 (07:11→21:19)
--- NOTE | 2018-08-17 09:26 | NUR ---
Nathaniel Valente- I met with pts and large number of family members on 08/14/2018 1415 and obtained translation through language line, I answered questions and offered support.
[2018-08-17] MEDS: LACTATED RINGERS 1,000 ML IV SCH ×3 (09:29→21:21)
[2018-08-17] MEDS: VANCOMYCIN 1500 MG/NS 500 ML IVPB IV SCH ×4 (09:41→21:21)
[2018-08-17] MEDS: ENOXAPARIN 30 MG/0.3 ML (LOVENOX) SYR SC SCH (11:43)
[2018-08-17] MEDS: ETHAMBUTOL 400 MG PO SCH (11:44)
[2018-08-17] MEDS: PYRIDOXINE (VITAMIN B-6) 50 MG TABLET PO SCH (11:44)
[2018-08-17] MEDS: ISONIAZID 300 MG PO SCH (11:44)
[2018-08-17] MEDS: PYRAZINAMIDE 500 MG PO SCH (11:44)
[2018-08-17] MEDS: RIFAMPIN 150 MG (RIFADIN) CAP PO SCH (11:45)
[2018-08-18] VITALS (10 sets, daily range): BP systolic 80–103; BP diastolic 47–67
[2018-08-18] MEDS: PIPERACILLIN/TAZOBACTAM (BULK) 4.5 GM in NS (IVPB) 100 ML IV SCH ×3 (00:41→16:31)
[2018-08-18] MEDS: NS IV 1000 ML 1,000 ML IV SCH ×3 (03:59→23:45)
[2018-08-18 04:10] LABS: BASOPHILS % (AUTO) 0 % (0-10); EOSINOPHILS # (AUTO) 0.3 10^3/uL (0.0-0.3); EOSINOPHILS % (AUTO) 3 % (0-10); HEMATOCRIT 31 % (40-54); HEMOGLOBIN 9.8 G/DL (13.3-17.7); LYMPHOCYTES # (AUTO) 1.5 X 10^3 (1.0-4.0); LYMPHOCYTES % (AUTO) 14 % (12-44); MEAN CORPUSCULAR HEMOGLOBIN 24 PG (25-34); MEAN CORPUSCULAR HGB CONC 32 G/DL (32-36); MEAN CORPUSCULAR VOLUME 76 FL (80-99); MONOCYTES % (AUTO) 9 % (0-12); NEUTROPHILS # (AUTO) 7.7 X 10^3 (1.8-7.8); NEUTROPHILS % (AUTO) 73 % (42-75); PLATELET COUNT 716 10^3/uL (130-400); RED CELL DISTRIBUTION WIDTH 15.2 % (10.0-14.5); WHITE BLOOD COUNT 10.5 10^3/uL (4.3-11.0)
[2018-08-18 04:22] LABS: ALANINE AMINOTRANSFERASE 19 U/L (0-55); ALBUMIN 2.7 GM/DL (3.2-4.5); ALKALINE PHOSPHATASE 131 U/L (40-136); BILIRUBIN,TOTAL 0.2 MG/DL (0.1-1.0); BUN/CREATININE RATIO 15; CALCIUM 8.9 MG/DL (8.5-10.1); CARBON DIOXIDE 23 MMOL/L (21-32); CHLORIDE 100 MMOL/L (98-107); CREATININE SERUM 0.74 MG/DL (0.60-1.30); GFR ESTIMATED > 60; GLUCOSE 95 MG/DL (70-105); MAGNESIUM 1.6 MG/DL (1.8-2.4); PHOSPHORUS 3.9 MG/DL (2.3-4.7); POTASSIUM 4.8 MMOL/L (3.6-5.0); SODIUM 133 MMOL/L (135-145); TOTAL PROTEIN 6.6 GM/DL (6.4-8.2)
--- NOTE | 2018-08-18 04:34 | Pulmonary Progress Note ---
Subjective Time Seen by a Provider: 04:35 Subjective/Events-last exam Pt appears to be doing better however still hypotensive. Sepsis Event Evaluation Height, Weight, BMI Height: 5'3.00" Weight: 96lbs. 6.0oz. 43.579817yv; 17.1 BMI Method: Focused Exam Lactate Level 08/17/18 07:45: Lactic Acid Level 1.42 Exam Exam Vital Signs Date Time Temp Pulse Resp B/P (MAP) Pulse Ox O2 Delivery O2 Flow Rate FiO2 08/18/18 04:16 98.4 92 20 91/61 (71) 94 Room Air 08/18/18 04:00 Room Air 08/18/18 01:00 88 08/18/18 00:00 Room Air 08/18/18 00:00 99.7 96 24 91/54 (66) 94 Room Air 08/17/18 21:19 93 Room Air 08/17/18 21:00 100/71 (81) Room Air 08/17/18 20:00 99.7 08/17/18 20:00 Room Air 08/17/18 20:00 108 24 92 Room Air 08/17/18 19:00 86 08/17/18 19:00 90 24 101/75 (84) 93 Room Air 08/17/18 16:00 Room Air 08/17/18 16:00 82 25 104/85 (91) 92 Room Air 08/17/18 16:00 97.5 08/17/18 13:00 74 08/17/18 12:00 Room Air 08/17/18 11:40 96.9 73 20 107/78 (88) 95 Room Air 08/17/18 10:00 68 18 99/64 (76) 95 Room Air 08/17/18 09:00 69 20 94/69 (77) 94 Room Air 08/17/18 08:00 97.0 83 16 95/59 (71) 95 Room Air 08/17/18 08:00 Room Air 08/17/18 07:11 92 Room Air 08/17/18 07:00 66 17 80/49 (59) 93 Room Air 08/17/18 07:00 68 08/17/18 06:00 79 25 85/53 (64) 95 Room Air I & O 08/18/18 07:00 Intake Total 4950 ml Balance 4950 ml Height & Weight Height: 5'3.00" Weight: 96lbs. 6.0oz. 43.209728he; 17.1 BMI Method: General Appearance: No Apparent Distress, Anxious, Mild Distress, Thin HEENT: PERRL/EOMI, Normal ENT Inspection, Pharynx Normal Neck: Full Range of Motion, Non Tender, Supple Respiratory: No Accessory Muscle Use, No Respiratory Distress, Decreased Breath Sounds Cardiovascular: Regular Rate, Rhythm, No Edema, No Gallop Capillary Refill: Less Than 3 Seconds Gastrointestinal: normal bowel sounds, non tender, soft, no organomegaly Extremity: Normal Capillary Refill, No Pedal Edema Neurologic/Psychiatric: Alert, Oriented x3 Skin: Normal Color, Warm/Dry Lymphatic: No Adenopathy Results Lab Laboratory Tests 08/17/18 03:19 08/18/18 03:55 Assessment/Plan Assessment/Plan Active TB with severe bilateral cavitary pneumonia -zosyn and await cultures -Continue RIPE therapy -agarwal cultures - pending -Check HIV -- neg -s/p bronchoscopy Hypotension -NS 100cc/hr. Hyponatremia -Monitor severe sepsis -Continue Abx and await cultures Hypomag -replace DM -Monitor YUSUF BECERRA DO Aug 18, 2018 04:34
[2018-08-18] MEDS: POTASSIUM CL 10MEQ/50ML IVPB 50 ML IV SCH (04:45)
[2018-08-18] MEDS: KCL 20 MEQ TAB (K-DUR) PO SCH (04:45)
[2018-08-18] MEDS: MAGNESIUM 1 GM/100 ML IVPB 100 ML IV SCH ×3 (04:45→06:06)
[2018-08-18] MEDS: inSUlin ASPART (NovoLOG) 1 UNIT/0.01 ML (CHARGE PER UNIT) SC SCH ×4 (04:46→22:23)
[2018-08-18] MEDS: metFORMIN 500 MG (GLUCOPHAGE) TAB PO SCH ×2 (06:07→16:31)
--- NOTE | 2018-08-18 08:26 | Diagnostic Imaging Report ---
INDICATION: Tuberculosis. Dyspnea. COMPARISON: 08/16/2018. FINDINGS: Multifocal heterogeneous consolidations have progressed. Multifocal cavitary lesions are present and largest in the left lung. No pleural effusion or pneumothorax. Stable cardiomediastinal silhouette. IMPRESSION: Worsening of multifocal pulmonary consolidations that may relate to active tuberculosis per provided history. Dictated by: Dictated on workstation # [id number]
[2018-08-18] MEDS: RT-ALBUTEROL SULF 2.5 MG/3 ML PRE-MIX VIAL INH SCH ×2 (10:26→19:02)
[2018-08-18] MEDS: ENOXAPARIN 30 MG/0.3 ML (LOVENOX) SYR SC SCH (11:47)
[2018-08-18] MEDS: RIFAMPIN 150 MG (RIFADIN) CAP PO SCH (11:47)
[2018-08-18] MEDS: ISONIAZID 300 MG PO SCH (11:47)
[2018-08-18] MEDS: PYRIDOXINE (VITAMIN B-6) 50 MG TABLET PO SCH (11:47)
[2018-08-18] MEDS: PYRAZINAMIDE 500 MG PO SCH (11:47)
[2018-08-18] MEDS: ETHAMBUTOL 400 MG PO SCH (11:48)
[2018-08-18] MEDS ORDERED: RT-LEVALBUTEROL (XOPENEX) 1.25 MG/3 ML NEB NON-FORMULARY ONE (17:58)
[2018-08-19] VITALS (10 sets, daily range): BP systolic 85–106; BP diastolic 52–93
[2018-08-19] MEDS: PIPERACILLIN/TAZOBACTAM (BULK) 4.5 GM in NS (IVPB) 100 ML IV SCH ×2 (01:42→12:44)
[2018-08-19 04:24] LABS: BASOPHILS % (AUTO) 0 % (0-10); EOSINOPHILS # (AUTO) 0.3 10^3/uL (0.0-0.3); EOSINOPHILS % (AUTO) 4 % (0-10); HEMATOCRIT 32 % (40-54); LYMPHOCYTES # (AUTO) 1.6 X 10^3 (1.0-4.0); LYMPHOCYTES % (AUTO) 18 % (12-44); MEAN CORPUSCULAR HEMOGLOBIN 24 PG (25-34); MEAN CORPUSCULAR HGB CONC 31 G/DL (32-36); MEAN CORPUSCULAR VOLUME 76 FL (80-99); MEAN PLATELET VOLUME 8.1 FL (7.4-10.4); MONOCYTES # (AUTO) 0.7 X 10^3 (0.0-1.0); MONOCYTES % (AUTO) 8 % (0-12); NEUTROPHILS # (AUTO) 6.3 X 10^3 (1.8-7.8); NEUTROPHILS % (AUTO) 70 % (42-75); PLATELET COUNT 693 10^3/uL (130-400); RED CELL DISTRIBUTION WIDTH 15.1 % (10.0-14.5)
[2018-08-19 04:35] LABS: ALANINE AMINOTRANSFERASE 22 U/L (0-55); ALBUMIN 2.8 GM/DL (3.2-4.5); ALKALINE PHOSPHATASE 142 U/L (40-136); BILIRUBIN,TOTAL 0.2 MG/DL (0.1-1.0); BUN/CREATININE RATIO 13; CALCIUM 8.9 MG/DL (8.5-10.1); CARBON DIOXIDE 22 MMOL/L (21-32); CHLORIDE 103 MMOL/L (98-107); CREATININE SERUM 0.78 MG/DL (0.60-1.30); GFR ESTIMATED > 60; GLUCOSE 187 MG/DL (70-105); MAGNESIUM 1.7 MG/DL (1.8-2.4); PHOSPHORUS 4.3 MG/DL (2.3-4.7); SODIUM 136 MMOL/L (135-145); TOTAL PROTEIN 6.7 GM/DL (6.4-8.2)
[2018-08-19] MEDS: KCL 20 MEQ TAB (K-DUR) PO SCH (05:30)
[2018-08-19] MEDS: POTASSIUM CL 10MEQ/50ML IVPB 50 ML IV SCH (05:30)
[2018-08-19] MEDS: MAGNESIUM 1 GM/100 ML IVPB 100 ML IV SCH ×3 (05:30→07:00)
[2018-08-19] MEDS: metFORMIN 500 MG (GLUCOPHAGE) TAB PO SCH ×2 (05:41→17:50)
[2018-08-19] MEDS: inSUlin ASPART (NovoLOG) 1 UNIT/0.01 ML (CHARGE PER UNIT) SC SCH ×4 (05:42→21:01)
[2018-08-19] MEDS: NS IV 1000 ML 1,000 ML IV SCH ×2 (05:45→17:49)
--- NOTE | 2018-08-19 08:00 | Diagnostic Imaging Report ---
Indication: Tuberculosis. Comparison with 08/18/2018. Findings: Dense alveolar infiltrates noted more severe on the left. There is significant volume loss in the left as well. Developing cavitary lesions noted bilaterally as reported previously. The heart is not enlarged. No pneumothorax. No pleural effusion. IMPRESSION: 1. Little overall change with diffuse alveolar infiltrates with cavitary nodular development again noted. Findings are again consistent with active TB. Little overall change has occurred since previous exam. Dictated by: Dictated on workstation # [id number]
[2018-08-19] MEDS: RT-ALBUTEROL SULF 2.5 MG/3 ML PRE-MIX VIAL INH SCH ×2 (08:41→23:26)
--- NOTE | 2018-08-19 08:47 | Pulmonary Progress Note ---
Subjective Time Seen by a Provider: 15:13 Subjective/Events-last exam No complications noted. Sepsis Event Evaluation Height, Weight, BMI Height: 5'3.00" Weight: 101lbs. 0.0oz. 45.396632xj; 17.1 BMI Method: Focused Exam Lactate Level 08/17/18 07:45: Lactic Acid Level 1.42 Exam Exam Vital Signs Date Time Temp Pulse Resp B/P (MAP) Pulse Ox O2 Delivery O2 Flow Rate FiO2 08/19/18 08:00 Room Air 08/19/18 04:00 86/52 (63) 94 Room Air 08/19/18 04:00 Room Air 08/19/18 01:00 91 08/19/18 00:00 92 18 Room Air 08/19/18 00:00 Room Air 08/19/18 00:00 98.0 92 18 99/63 (75) 94 Room Air 08/18/18 23:00 77 23 80/47 (58) 93 Room Air 08/18/18 22:00 78 25 96/63 (74) 97 Room Air 08/18/18 21:00 96 28 103/66 (78) 98 Room Air 08/18/18 20:00 94 25 89/60 (70) 92 Room Air 08/18/18 20:00 97.0 08/18/18 20:00 Room Air 08/18/18 19:02 90 08/18/18 19:02 95 Room Air 08/18/18 16:31 Room Air 08/18/18 16:00 97.2 08/18/18 16:00 82 24 82/67 (72) 93 Room Air 08/18/18 13:00 88 08/18/18 12:00 106 89/58 (68) 94 Room Air 08/18/18 11:58 97.6 Room Air 08/18/18 11:46 Room Air 08/18/18 10:26 93 95 08/18/18 10:26 95 Room Air I & O 08/19/18 07:00 Intake Total 2350 ml Balance 2350 ml Height & Weight Height: 5'3.00" Weight: 101lbs. 0.0oz. 45.003264xd; 17.1 BMI Method: General Appearance: No Apparent Distress, WD/WN, Anxious HEENT: PERRL/EOMI, Normal ENT Inspection, Pharynx Normal Neck: Full Range of Motion, Normal Inspection, Non Tender, Supple Respiratory: Chest Non Tender, No Accessory Muscle Use, No Respiratory Distress, Decreased Breath Sounds Cardiovascular: Regular Rate, Rhythm, No Edema, No Gallop, No JVD Capillary Refill: Less Than 3 Seconds Gastrointestinal: normal bowel sounds, non tender, soft, no organomegaly, no pulsatile mass Extremity: Normal Capillary Refill, Normal Inspection Neurologic/Psychiatric: Alert, Oriented x3 Skin: Normal Color, Warm/Dry Lymphatic: No Adenopathy Results Lab Laboratory Tests 08/18/18 03:55 08/19/18 04:05 Assessment/Plan Assessment/Plan Active TB with severe bilateral cavitary pneumonia -zosyn and await cultures -Continue RIPE therapy will be directed by health dept -agarwal cultures - pending -Check HIV -- neg -s/p bronchoscopy Hypotension -Continue IVF Hyponatremia -Monitor severe sepsis -Continue Abx and await cultures Hypomag -replace DM -Monitor Plan for discharge or Friday. Will follow up after TB is treated per health dept recs. Will do bronchoscopy later in treatment mgmt if needed. Will plan on seeing pt 6mo after discharge unless he develops worsening symptoms or if bronchoscopy is needed per health dept. Today is last day of Zosyn and cultures have been negative. No other Abx needed at this time. YUSUF BECERRA DO Aug 19, 2018 08:47
[2018-08-19] MEDS: ENOXAPARIN 30 MG/0.3 ML (LOVENOX) SYR SC SCH (11:00)
[2018-08-19] MEDS: PYRIDOXINE (VITAMIN B-6) 50 MG TABLET PO SCH (12:00)
[2018-08-19] MEDS: RIFAMPIN 150 MG (RIFADIN) CAP PO SCH (12:00)
--- NOTE | 2018-08-19 12:12 | NUR ---
Notified Avis Adriana [phone] at [facility] that patients planned discharge this week. She ask that we send her the prescriptions the patient will need for medications and the name of the physician doing follow up as they do not have a physician working for the [facility] at this time. Patient will need education on being isolated at home and not to leave home and to wear a mask anytime he is around other people until the Health department tells him otherwise.
[2018-08-19] MEDS: ETHAMBUTOL 400 MG PO SCH (12:24)
[2018-08-19] MEDS: ISONIAZID 300 MG PO SCH (12:24)
[2018-08-19] MEDS: PYRAZINAMIDE 500 MG PO SCH (12:24)
[2018-08-19] MEDS: ACETAMINOPHEN 325 MG TABLET PO PRN (23:04)
[2018-08-20] VITALS: BP 86/53
[2018-08-20 01:00] VITALS: BP 86/50
[2018-08-20 02:00] VITALS: BP_SYST 57; BP_SYST 84; BP_DIAS 43; BP_DIAS 56
[2018-08-20 03:00] VITALS: BP 90/64
[2018-08-20 03:22] LABS: BASOPHILS % (AUTO) 0 % (0-10); EOSINOPHILS # (AUTO) 0.3 10^3/uL (0.0-0.3); EOSINOPHILS % (AUTO) 2 % (0-10); HEMATOCRIT 34 % (40-54); HEMOGLOBIN 10.4 G/DL (13.3-17.7); LYMPHOCYTES # (AUTO) 1.7 X 10^3 (1.0-4.0); LYMPHOCYTES % (AUTO) 15 % (12-44); MEAN CORPUSCULAR HEMOGLOBIN 23 PG (25-34); MEAN CORPUSCULAR HGB CONC 31 G/DL (32-36); MEAN CORPUSCULAR VOLUME 76 FL (80-99); MEAN PLATELET VOLUME 7.8 FL (7.4-10.4); MONOCYTES # (AUTO) 0.9 X 10^3 (0.0-1.0); MONOCYTES % (AUTO) 7 % (0-12); NEUTROPHILS # (AUTO) 8.6 X 10^3 (1.8-7.8); NEUTROPHILS % (AUTO) 75 % (42-75); PLATELET COUNT 772 10^3/uL (130-400); RED CELL DISTRIBUTION WIDTH 15.5 % (10.0-14.5); WHITE BLOOD COUNT 11.5 10^3/uL (4.3-11.0)
[2018-08-20 03:41] LABS: ALANINE AMINOTRANSFERASE 25 U/L (0-55); ALKALINE PHOSPHATASE 162 U/L (40-136); BILIRUBIN,TOTAL 0.1 MG/DL (0.1-1.0); BUN/CREATININE RATIO 19; CALCIUM 9.3 MG/DL (8.5-10.1); CARBON DIOXIDE 23 MMOL/L (21-32); CHLORIDE 101 MMOL/L (98-107); CREATININE SERUM 0.75 MG/DL (0.60-1.30); GFR ESTIMATED > 60; GLUCOSE 96 MG/DL (70-105); MAGNESIUM 1.8 MG/DL (1.8-2.4); PHOSPHORUS 4.4 MG/DL (2.3-4.7); POTASSIUM 4.5 MMOL/L (3.6-5.0); SODIUM 134 MMOL/L (135-145); TOTAL PROTEIN 7.1 GM/DL (6.4-8.2)
[2018-08-20 04:00] VITALS: BP_SYST 78; BP_SYST 81; BP_DIAS 48; BP_DIAS 53
[2018-08-20] MEDS: NS IV 1000 ML 1,000 ML IV SCH (04:10)
[2018-08-20] MEDS: POTASSIUM CL 10MEQ/50ML IVPB 50 ML IV SCH (05:37)
[2018-08-20] MEDS: MAGNESIUM 1 GM/100 ML IVPB 100 ML IV SCH (05:38)
[2018-08-20] MEDS: KCL 20 MEQ TAB (K-DUR) PO SCH (05:39)
[2018-08-20] MEDS: inSUlin ASPART (NovoLOG) 1 UNIT/0.01 ML (CHARGE PER UNIT) SC SCH ×2 (06:00→12:32)
--- NOTE | 2018-08-20 07:48 | Pulmonary Progress Note ---
Subjective Time Seen by a Provider: 07:50 Subjective/Events-last exam No complications noted. Sepsis Event Evaluation Height, Weight, BMI Height: 5'3.00" Weight: 101lbs. 0.0oz. 45.288828af; 17.1 BMI Method: Focused Exam Lactate Level 08/17/18 07:45: Lactic Acid Level 1.42 Exam Exam Vital Signs Date Time Temp Pulse Resp B/P (MAP) Pulse Ox O2 Delivery O2 Flow Rate FiO2 08/20/18 04:00 97.8 08/20/18 04:00 79 81/48 (59) 94 Room Air 08/20/18 03:00 77 90/64 (73) 94 Room Air 08/20/18 02:00 75 84/56 (65) 93 Room Air 08/20/18 01:00 84 08/20/18 01:00 86 86/50 (62) 93 Room Air 08/20/18 00:00 99 86/53 (64) 91 Room Air 08/20/18 00:00 99.2 08/20/18 00:00 99.2 08/19/18 23:04 100.3 08/19/18 23:00 100.3 08/19/18 23:00 108 96/62 (73) 93 Room Air 08/19/18 22:00 108 96/69 (78) 93 Room Air 08/19/18 21:00 90 92/64 (73) 93 Room Air 08/19/18 20:45 Room Air 08/19/18 20:00 100.2 08/19/18 20:00 105 106/93 (97) Room Air 08/19/18 19:00 83 98/66 (77) 93 Room Air 08/19/18 19:00 90 08/19/18 16:00 95 99/66 (77) 93 Room Air 08/19/18 16:00 Room Air 08/19/18 16:00 98.6 08/19/18 13:00 94 08/19/18 12:00 98 93/74 (80) 95 Room Air 08/19/18 12:00 Room Air 08/19/18 12:00 97.6 08/19/18 08:41 94 Room Air 08/19/18 08:00 Room Air 08/19/18 08:00 89 85/55 (65) 93 Room Air I & O 08/20/18 07:00 Intake Total 1120 ml Balance 1120 ml Height & Weight Height: 5'3.00" Weight: 101lbs. 0.0oz. 45.285764qp; 17.1 BMI Method: General Appearance: No Apparent Distress, WD/WN, Anxious HEENT: PERRL/EOMI, Normal ENT Inspection, Pharynx Normal Neck: Full Range of Motion, Normal Inspection, Non Tender, Supple Respiratory: Chest Non Tender, No Accessory Muscle Use, No Respiratory Distress, Decreased Breath Sounds Cardiovascular: Regular Rate, Rhythm, No Edema, No Gallop, No JVD Capillary Refill: Less Than 3 Seconds Gastrointestinal: normal bowel sounds, non tender, soft, no organomegaly, no pulsatile mass Extremity: Normal Capillary Refill, Normal Inspection Neurologic/Psychiatric: Alert, Oriented x3 Skin: Normal Color, Warm/Dry Lymphatic: No Adenopathy Results Lab Laboratory Tests 08/19/18 04:05 08/20/18 03:10 Assessment/Plan Assessment/Plan Active TB with severe bilateral cavitary pneumonia -Continue RIPE therapy will be directed by health dept -agarwal cultures - pending -Check HIV -- neg -s/p bronchoscopy Hypotension -Nursing states his BP readings have been inaccurate secondary to BP cuff falling to lower part of arm however they are still being recorded. I discussed with RN and she will do a manual BP if SBP is < 95 and call doctor if still low. Hyponatremia -Monitor severe sepsis -Continue Abx and await cultures DM -Monitor Plan for discharge Today or Friday if BP is stable. Will follow up after TB is treated per health dept recs. Will do bronchoscopy later in treatment mgmt if needed. Will plan on seeing pt 6mo after discharge unless he develops worsening symptoms or if bronchoscopy is needed per health dept. Discussed in depth with Dr. Soriano. YUSUF BECERRA DO Aug 20, 2018 07:48
[2018-08-20 08:00] VITALS: BP 90/63
--- NOTE | 2018-08-20 08:40 | Diagnostic Imaging Report ---
Indication: Tuberculosis. Comparison made with prior examination of 08/19/2018. Findings: Persistent patchy bilateral alveolar infiltrates with underlying cavitary lesions which are unchanged. There is no pleural effusion or pneumothorax. Heart size is normal. Impression: Unchanged bilateral alveolar disease left greater than right with some underlying cavitary lesions. Dictated by: Dictated on workstation # [id number]
[2018-08-20] MEDS: metFORMIN 500 MG (GLUCOPHAGE) TAB PO SCH (08:52)
[2018-08-20] MEDS ORDERED: PYRA500T13 PO (09:47)
[2018-08-20] MEDS ORDERED: PYRI50TA11 PO (09:47)
[2018-08-20] MEDS ORDERED: ETHA400T29 PO (09:47)
[2018-08-20] MEDS ORDERED: RIFA150C3 PO (09:47)
[2018-08-20] MEDS ORDERED: ISON300T18 PO (09:47)
--- NOTE | 2018-08-20 09:49 | Discharge Summary-Hospitalist ---
Diagnosis/Chief Complaint Date of Admission Aug 11, 2018 at 21:03 Date of Discharge Discharge Date: Aug 20, 2018 Discharge Diagnosis (1) Tuberculosis Status: Acute (2) Positive QuantiFERON-TB Gold test Status: Acute (3) Hyponatremia Status: Acute (4) Hypomagnesemia Status: Acute (5) Weight loss, unintentional Status: Acute (6) Pneumonia Status: Acute (7) Sepsis Status: Acute (8) Cough Status: Acute Discharge Summary Discharge Physical Exam Allergies: Coded Allergies: No Known Drug Allergies (Unverified , 08/11/18) Vitals & I&Os Vital Signs Date Time Temp Pulse Resp B/P (MAP) Pulse Ox O2 Delivery O2 Flow Rate FiO2 08/20/18 12:24 92 08/20/18 08:02 96 Room Air 08/20/18 08:00 90/63 (72) 08/20/18 04:00 97.8 08/19/18 00:00 18 08/15/18 16:00 2.00 General Appearance: No Apparent Distress, WD/WN Hospital Course Was the Problem List Reviewed?: Yes Hospital Course: Pt had a long and lengthy hospital course. He was suspected to have disseminated TB that was subsequently confirmed. He was maintained on four drug regimen and pt was maintained in isolation since admission. Overall he tolerated the medication well. Will have close follow up with [place] [facility] for direct observed therapy and close follow up with [facility]. He will be given mask to prevent the spread of respiratory droplets of TB. Labs (last 24 hrs) Laboratory Tests 08/20/18 03:10: White Blood Count 11.5H, Red Blood Count 4.43, Hemoglobin 10.4L, Hematocrit 34L, Mean Corpuscular Volume 76L, Mean Corpuscular Hemoglobin 23L, Mean Corpuscular Hemoglobin Concent 31L, Red Cell Distribution Width 15.5H, Platelet Count 772H, Mean Platelet Volume 7.8, Neutrophils (%) (Auto) 75, Lymphocytes (%) (Auto) 15, Monocytes (%) (Auto) 7, Eosinophils (%) (Auto) 2, Basophils (%) (Auto) 0, Neutrophils # (Auto) 8.6H, Lymphocytes # (Auto) 1.7, Monocytes # (Auto) 0.9, Eosinophils # (Auto) 0.3, Basophils # (Auto) 0.0, Sodium Level 134L, Potassium Level 4.5, Chloride Level 101, Carbon Dioxide Level 23, Anion Gap 10, Blood Urea Nitrogen 14, Creatinine 0.75, Estimat Glomerular Filtration Rate > 60, BUN/Creatinine Ratio 19, Glucose Level 96, Calcium Level 9.3, Corrected Calcium 10.1, Phosphorus Level 4.4, Magnesium Level 1.8, Total Bilirubin 0.1, Aspartate Amino Transf (AST/SGOT) 19, Alanine Aminotransferase (ALT/SGPT) 25, Alkaline Phosphatase 162H, Total Protein 7.1, Albumin 3.0L 08/20/18 12:20: Glucometer 100 Microbiology 08/12/18 Blood Culture - Final, Complete No growth 08/16/18 Gram Stain - Final, Complete 08/16/18 Sputum Culture - Final, Complete Usual upper respiratory bessy YEAST Patient resulted labs reviewed. Pending Labs Discussion & Recommendations Discharge Planning: <30 minutes discharge planning Discharge Home Medications: Active Scripts Active Vitamin B-6 (Pyridoxine HCl) 50 Mg Tablet 50 Mg PO DAILY@1200 90 Days Rifampin 150 Mg Capsule 450 Mg PO DAILY@1200 90 Days Pyrazinamide 500 Mg Tablet 1,000 Mg PO DAILY@1200 90 Days Isoniazid 300 Mg Tablet 300 Mg PO DAILY@1200 90 Days Ethambutol HCl 400 Mg Tablet 800 Mg PO DAILY@1200 90 Days Instructions to patient/family Please see electronic discharge instructions given to patient. Clinical Quality Measures DVT/VTE Risk/Contraindication: RFS Level Per Nursing on Admit: 0=No Risk/No VTE PPX Problem Qualifiers (1) Pneumonia: Pneumonia type: due to unspecified organism Laterality: bilateral Lung location: unspecified part of lung Qualified Codes: J18.9 - Pneumonia, unspecified organism (2) Sepsis: Sepsis type: sepsis due to unspecified organism Qualified Codes: A41.9 - Sepsis, unspecified organism VASHTI HAMILTON DO Aug 20, 2018 09:49
[2018-08-20] MEDS: ENOXAPARIN 30 MG/0.3 ML (LOVENOX) SYR SC SCH (11:17)
[2018-08-20] MEDS: PYRAZINAMIDE 500 MG PO SCH (13:09)
[2018-08-20] MEDS: ISONIAZID 300 MG PO SCH (13:09)
[2018-08-20] MEDS: ETHAMBUTOL 400 MG PO SCH (13:10)
[2018-08-20] MEDS: PYRIDOXINE (VITAMIN B-6) 50 MG TABLET PO SCH (13:11)
[2018-08-20] MEDS: RIFAMPIN 150 MG (RIFADIN) CAP PO SCH (13:11)
--- NOTE | 2018-08-20 13:34 | NUR ---
DISCHARGE INSTRUCTIONS, FOLLOW UP INFORMATION, MEDICATION INSTRUCTION AND EDUCATION, AND MASK EDUCATION GIVEN VIA LANGUAGE LINE WITH ASSISTANCE OF RECLAMATION SUPERVISOR. PT VOICES UNDERSTANDING.
--- NOTE | 2018-08-20 14:15 | NUR ---
Contacted Avis Wright with [facility] to inform of patient discharging from hospital this day. Avis stated [facility] is requesting Discharge Summary, negative HIV test and Bronchoscopy documentation.
== END 2018-08-20 14:43 | disposition home or self-care (01) | DRG 871 ==
LOC: 4TH 21:03 → ICU 08-12 15:27
PROVIDERS: ADMIT Family Medicine; ATTEND Family Medicine
PROC: 0B9D8ZX Drainage of Right Middle Lung Lobe, Via Natural or Artificial Opening Endoscopic, Diagnostic (ICD-10-PCS; principal; 2018-08-13)
PROC: 0B938ZX Drainage of Right Main Bronchus, Via Natural or Artificial Opening Endoscopic, Diagnostic (ICD-10-PCS; 2018-08-13)
PROC: 0B978ZX Drainage of Left Main Bronchus, Via Natural or Artificial Opening Endoscopic, Diagnostic (ICD-10-PCS; 2018-08-13)
DX: A41.9 Sepsis, unspecified organism (principal); R65.20 Severe sepsis without septic shock; J18.9 Pneumonia, unspecified organism; A15.0 Tuberculosis of lung; E87.1 Hypo-osmolality and hyponatremia; I95.9 Hypotension, unspecified; D50.9 Iron deficiency anemia, unspecified; E83.42 Hypomagnesemia; E11.9 Type 2 diabetes mellitus without complications; R63.4 Abnormal weight loss
CPT/HCPCS: 36415; 71045; 71046; 71250; 80053; 80202; 80306; 81000; 82728; 82785; 82805; 82962; 83036; 83540; 83605; 83735; 84100; 85007; 85025; 85027; 85045; 86003; 86480; 86606; 86612; 86628; 86635; 86698; 86703; 87015; 87040; 87070; 87101; 87116; 87205; 87206; 88112; 88305; 88312; 94640; 94760